=== PATIENT | male | born 1980 | race Caucasian/White ===

== ENCOUNTER 2016-06-15 14:11 | Inpatient (IN) | payer MEDICARE, MEDICAID ==
[2016-06-15] MEDS ORDERED: NORMAL SALINE 1,000 ML IV ONE ×4 (14:30→15:58)
--- NOTE | 2016-06-15 14:57 | ERNOTE ---
Medical Problem HPI - Narrative Date of Service: 06/15/16 - General Chief Complaint: Diabetes Related Problem Time Seen by Provider: 06/15/16 14:37 Source: patient, family Exam Limitations: no limitations - Immun/Allergies/Home Medications Immunizations: IMMUNIZATION HX Immunizations Up to Date No History of Influenza Vaccine No Hx Pneumococcal Vaccination No Allergies/Adverse Reactions: Allergies Penicillins Allergy (Intermediate, Verified 06/15/16 14:53) Hives codeine Allergy (Verified 06/15/16 14:53) Hives Pt notes no allergy clarithromycin Adverse Reaction (Verified 06/15/16 14:53) Pt notes no allergy metoclopramide Adverse Reaction (Verified 06/15/16 14:53) Pt notes no allergy Home Medications: HOME MEDICATIONS ALPRAZolam [Xanax] 1 mg PO TID PRN 06/15/16 [Last Taken Unknown] HYDROcodone/ACETAMINOPHEN [[place] 10-325 Tablet] 1 each PO Q4H PRN 06/15/16 [ Last Taken Unknown] Insulin Glargine,Hum.rec.anlog [Lantus] 30 units SC BID 06/15/16 [Last Taken Unknown] Insulin Lispro [Humalog] 0 - 12 units SC ACHS 06/15/16 [Last Taken Unknown] Venlafaxine HCl [Effexor] 150 mg PO BID 06/15/16 [Last Taken Unknown] - History of Present History Narrative: Patient comes due to vomiting, chest pain, abdominal pain, and elevated sugar level. Patient has not been able to drink fluids and has not been using his recommended medications for his DM. Timing: constant Severity: severe Modifying Factors - (Improves): Present: other - nothing Modifying Factors - (Worsens): Present: other - Failing to use his medications for DM Review of Systems - Review of Systems Constitutional: Present: weakness, malaise. Absent: fever, chills EYE: Present: no symptoms reported ENT: Present: no symptoms reported Respiratory: Present: cough Cardiology: Present: chest pain. Absent: palpitations, syncope, edema, claudication Gastrointestinal/Abdominal: Present: nausea, vomiting, abdominal pain - epigastric. Absent: diarrhea Genitourinary: Absent: dysuria, hematuria, discharge Musculoskeletal: Present: muscle pain Skin: Absent: rash, lesions Neurological: Present: anxiety, depressed, weakness Endocrine: Present: intolerance to heat, intolerance to cold, unexplained weight loss Hematologic/Lymphatic: Absent: easy bruising, easy bleeding, swollen glands Psych: Present: anxiety, depressed, emotional problems All Other Systems: All systems neg except as marked - Patient's Past Medical History Patient History - Medical: Anxiety, Bipolar, Diabetes Type 1, Depression Patient History - Cardiac/Respiratory: No pertinent hx Patient History - Cancer: No Hx of Cancer Patient History - Surgical Procedures: Amputation Patient History - Other: None - Family History Mother Family History - Medical: Diabetes Type 2 Insulin Dependent - Social History Living Situations: home Abuse History: No History of abuse Psych History: Hx of Anxiety, Hx of Depression Smoking Status: Current every day smoker Have you smoked in the past 12 months: Yes Alcohol Use: none Drug Use: marijuana - Immunizations Immunizations Up to Date: No Hx Pneumococcal Vaccination: No History of Influenza Vaccine: No Physical Exam - Physical Exam General Appearance: Present: moderate distress - in pain, anxious, other - wasted and cachetic Eye Exam: Normal inspection: bilateral, PERRL: bilateral, EOMI: bilateral Ears, Nose, Throat: Present: normal pharynx, dry mucous membranes. Absent: nasal congestion, sinus pain/drainage, pharyngeal erythema, pharyngeal swelling , tonsillar exudate Neck: Present: normal inspection, nontender Respiratory: Present: no respiratory distress, normal breath sounds, no accessory muscle use, chest nontender, lungs clear Cardiovascular/Chest: Present: no murmur, normal peripheral pulses, tachycardia. Absent: JVD Gastrointestinal/Abdominal: Present: normal bowel sounds, nontender, nondistended, soft, no organomegaly Back Exam: Present: normal inspection, normal range of motion, no CVA tenderness , no vertebral tenderness Extremity Exam: Present: normal inspection, non-tender, normal range of motion, no edema Neurological Exam: Present: alert, oriented, normal mood/affect, no motor/ sensory deficits Skin Exam: Present: normal color, warm/dry. Absent: diaphoresis, cyanosis, jaundice, skin rash Lymphatic Exam: Present: no adenopathy ED Progress - Date and Time Seen: Date and Time: 06/15/16 14:54 Procedure Note: Patient was placed an external jugular peripheral access by me. The area was clean with iodine and a 20G was placed. Venous return was noticed and good flow. Patient had no complications and had and EBL: 0. 06/15/16 16:21 Patient at the moment is feeling better. Patient was found with a low pH, positive ketones and dehydration. Patient will be treated for DKA. Patient at the moment with no ST Elevations and negative Trop. Call to Hospitalist was placed and Insulin Drip was started. 06/15/16 16:24 Hospitalist has been paged. 06/15/16 16:59 Case has been accepted by Hospitalist - Results and Orders Patient's Lab Results:: I have reviewed the patient's lab results. Results and Orders: CBC: WNL CMP: Elevated glucose, low CO2, +ketones ABGs: low pH APAP, Alcohol, and Salicylate Level: negative - Vital Signs Patient's Vital Signs:: I have reviewed the patient's vital signs. Vital Signs: Vital Signs 06/15/16 06/15/16 14:13 14:38 Temperature 36.1 C L 36.1 C L Pulse Rate 110 H 106 H Respiratory 33 H 22 H Rate Blood Pressure 112/60 107/68 O2 Sat by Pulse 99 100 Oximetry - EKG EKG read: Interp. by me EKG Comments: HR: 107, No ST Elevation, S. Tachy - X-Ray X-Ray #1 X-Ray: chest - No change from previous. No infiltrates Interpretation: Reviewed by me - Progress/Reassessment Chief Complaint: Diabetes Related Problem Progress:: Improved - Transfer of Care Expected Disposition: Admit Plan - Plan Plan: Patient found with severe dehydration and elevated glucose with the Hx on non compliance. Patient will be given hydration. Tx for chest pain will be given. Admit to ICU. Departure - Departure Clinical Impression: Dehydration Chest pain Qualifiers: Chest pain type: unspecified Qualified Code(s): R07.9 - Chest pain, unspecified
[2016-06-15] MEDS ORDERED: ONDANSETRON HCL/PF 2 MG/ML VIAL IV ONE (14:59)
[2016-06-15] MEDS ORDERED: FAMOTIDINE 10 MG/ML VIAL IV ONE ×2 (14:59)
[2016-06-15] MEDS ORDERED: ONDANSETRON HCL/PF 2 MG/ML VIAL ONE (14:59)
[2016-06-15 15:07] LABS: Hematocrit 40.4 % (42.0-52.0); Hemoglobin 13.5 gm/dL (13.5-18.0); Mean Corpuscular Hemoglobin 31.4 pg (27-31); Mean Corpuscular Hgb Conc 33.4 g/dl (32-36); Mean Platelet Volume 10.5 fl (6.0-9.5); Neutrophil # 6.2 K/mm3 (1.3-6.0); Platelet Count 332 K/mm3 (150-450); Red Cell Distribution Width 12.6 % (11.5-14.0); White Blood Count 9.5 K/mm3 (4.0-10.5)
[2016-06-15 15:41] LABS: ALT 12 U/L (19-67); AST 8 U/L (0-48); Albumin * 4.6 gm/dl (3.4-5.0); Alkaline Phosphatase * 107 U/L (50-170); Anion Gap 34.1 mmol/L (6.8-13.8); BUN/Creatinine Ratio 10.1 (9.0-21.6); Bilirubin, Total 0.8 mg/dL (0.0-1.1); Blood Urea Nitrogen 15 mg/dL (6-23); Ca. Corrected For Albumin 9.4 mg/dL (8.4-10.2); Calcium * 10.2 mg/dL (7.9-10.9); Carbon Dioxide 10.3 mmol/L (24-32.6); Chloride 95 mmol/L (97-106); Potassium 4.4 mmol/L (3.4-4.6); Salicylate 6.1 mg/dL (2.8-20.0); Sodium 135 mmol/L (132-142); Total Protein 7.7 gm/dL (6.2-8.2)
[2016-06-15 15:42] LABS: Troponin I Less than 0.017 ng/ml (0.00-0.10)
--- OUTSIDE RECORDS SUMMARY | 2016-06-15 15:49 | XMS REPORT | Continuity of Care Document ---
:1980 Author Organization [facility] ([facility]) Address [address] [place] [address] Phone [phone] Care Team Providers Name Role Phone Mitchell Peres Primary Care Provider [phone] Source Comments This disclosure is being made pursuant to the Care Everywhere program, applicable federal and state laws, and may not contain all informaitonavailable regarding this patient.[facility] ([facility]) Active Allergies and Adverse Reactions Allergen Noted Date Severity Reactions Comments Codeine 12/07/2015 Urticaria (Hives) Penicillins Urticaria (Hives) Current Medications Prescription Sig. Disp. Refills Start Date End Date Status blood glucose 1 Kit 4 times daily. 1 Each 0 05/16/2011 Active meter (BLOOD Indications: Diabetes GLUCOSE METER) Kit Mellitus Lancets (FREESTYLE 1 Each 4 times daily. 120 Each 1 05/16/2011 Active LANCETS) [facility] [place] Indications: Type 1 Diabetes Mellitus glucose blood test 1 Strip 4 times 120 Package 1 05/16/2011 Active strips (FREESTYLE daily. Indications: TEST) Type 1 Diabetes Mellitus Insulin [place], Use as directed with 100 Each 6 07/14/2011 Active Disposable, (PEN insulin pens.Dispense NEEDLES) 31 X 1/4 UltiCare or SM " Ndle Clickfine Pen [place] Indications: Diabetes Mellitus fenofibrate Take 1 Tab by mouth 90 Tab 3 07/15/2011 Active (TRICOR) 145 mg daily. pMAP tablet Indications: Hyperlipidemia SUPPLY by In Vitro route 50 Strip 11 06/28/2012 Active KETO-DIASTIX test daily. Indications: strips TYPE 1 DIABETES MELLITUS ALPRAZolam 1 mg Take 1 mg by mouth 3 Active tablet times daily . calcitriol 0.5 mcg Take 2 capsules (1 60 capsule 11 04/19/2015 Active capsule mcg total) by mouth daily. folic acid 1 mg Take 1 tablet (1 mg 30 tablet 04/19/2015 Active tablet total) by mouth daily. thiamine (VITAMIN Take 2 tablets (100 60 tablet 11 04/19/2015 Active B-1) 50 mg tablet mg total) by mouth daily. HYDROcodone-acetam Take 1 tablet by Active inophen 10-325 mg mouth every 4 hours per tablet as needed. LANTUS SOLOSTAR Inject 9 Units 15 mL 11 07/07/2015 Active 100 unit/mL (3 mL) subcutaneously 2 injection pen times daily. polyethylene Mix 17 gm (line 527 g 1 07/07/2015 Active glycol 3350 inside of cap) with (MIRALAX) 17 fluids and take by gram/dose powder mouth daily for constipation. glucagon (GLUCAGON Inject 1 Kit 11 07/07/2015 Active EMERGENCY KIT intramuscularly once (HUMAN)) 1 mg as needed. injection traMADol 50 mg Take 50 mg by mouth Active tablet every 4 hours as needed. potassium chloride Take 10 mEq by mouth Active 10 mEq XR tablet 2 times daily. venlafaxine 150 mg Take 150 mg by mouth Active XR capsule 2 times daily. pregabalin Take 1 capsule (75 mg 28 capsule 0 12/10/2015 Active (LYRICA) 75 mg total) by mouth 2 capsule times daily. insulin aspart Inject 8 units 15 mL 11 12/10/2015 Active (NovoLOG Flexpen) subcutaneously 3 100 unit/mL (3 mL) times daily with injection pen meals plus 1-5 Units 3 times daily before meals based on sliding scale. Hold if meal skip. Active Problems Problem Noted Date Metabolic encephalopathy 12/08/2015 Hypophosphatemia 12/08/2015 Hypokalemia 12/08/2015 Hypernatremia 12/08/2015 High anion gap metabolic acidosis 12/08/2015 Lactic acidosis 12/08/2015 Acute respiratory failure 12/07/2015 Diabetic ketoacidosis without coma associated with type 1 diabetes 12/07/2015 mellitus Subcutaneous emphysema 07/07/2015 Overview: monitor Pneumothorax, iatrogenic 07/04/2015 Last Assessment & Plan: Chest tube in place. Monitor. Removed on 07/06. Left hip pain 05/19/2015 Delirium 04/15/2015 Closed left hip fracture 04/11/2015 Postprocedural hypotension 04/11/2015 Closed fracture of left hip 04/10/2015 Tachycardia, unspecified 06/26/2012 Foot callus 01/30/2012 ALEKSANDRA (acute kidney injury) 12/12/2011 Anemia 12/12/2011 Last Assessment & Plan: Monitor. 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/2008 Overview: Band saw accident Uncontrolled type 1 diabetes mellitus Overview: Endocrinology consult GERD (gastroesophageal reflux disease) Overview: PPI ordered Mixed hyperlipidemia Anxiety Last Assessment & Plan: Restart home medications Resolved Problems Problem Noted Date Resolved Date ALEKSANDRA (acute kidney injury) 06/27/2012 06/28/2012 Leukocytosis, unspecified 06/27/2012 06/28/2012 Hypovolemic shock 06/27/2012 06/28/2012 DKA (diabetic ketoacidoses) 12/11/2011 06/28/2012 Other abnormal blood chemistry 06/11/2008 05/09/2011 Pain in joint, hand 10/25/2007 05/09/2011 Type II or unspecified type diabetes mellitus with 08/27/2007 05/09/2011 ketoacidosis, uncontrolled Immunizations Name Dates Previously Given Next Due Influenza, PF 12/13/2011 Influenza, unspecified 12/09/2010 Pneumococcal, unspecified 12/09/2010 Tdap 07/14/2011 Social History Tobacco Use Types Packs/Day Years Used Date Current Every Day Smoker 0.5 20 Smokeless Tobacco: Former User Tobacco Cessation:Ready to Quit: No; Counseling Given: Yes Comments:Started smoking at age 11 Alcohol Use Drinks/Week oz/Week Comments No 0.0 stopped in Feb 2011 Last Filed Vital Signs Vital Sign Reading Time Taken Blood Pressure 103/75 12/10/2015 1:00 PM CDT Pulse 134 12/07/2015 2:35 AM CDT Temperature 36.2 C (97.2 F) 12/10/2015 1:00 PM CDT Respiratory Rate 22 12/07/2015 2:35 AM CDT Height 1.8 m (5' 10.87") 12/09/2015 12:16 PM CDT Weight 58.1 kg (128 lb 1.4 oz) 12/07/2015 2:45 AM CDT Body Mass Index 17.93 12/07/2015 2:45 AM CDT Oxygen Saturation 96% 12/10/2015 1:00 PM CDT Plan of Care Patient Goal Type Goal Result Component % HBA1C below 7.0 Health Maintenance Due Date Last Done Comments Hepatitis B Vaccine (1 of 3 - 1980 Primary Series) MMR Vaccine 11/27/1997 Varicella Vaccine (1 of 2 - 11/27/1997 Adult - No Evidence of Immunity) Pneumococcal Vaccine (1 of 1 11/27/1998 - PPSV23) DIABETIC: Foot Exam 07/13/2012 07/14/2011, 07/14/2011 DIABETIC: Retinal Eye Exam 09/11/2012 09/12/2011, 09/12/2011 DIABETIC: Cholesterol 10/26/2012 10/27/2011, 05/09/2011 Diabetic: Hdl 10/26/2012 10/27/2011, 05/09/2011 Diabetic: Ldl 10/26/2012 10/27/2011, 05/10/2011, 05/09/2011 DIABETIC: Microalbumin 10/26/2012 10/27/2011 DIABETIC: Triglycerides 10/26/2012 10/27/2011, 05/09/2011 Influenza Vaccine: Seasonal 09/28/2015 12/13/2011, (#1) 12/09/2010 DIABETIC: Hemoglobin A1C 01/06/2016 07/06/2015, Additional history exists 04/10/2015, 06/26/2012 Td Vaccine 07/13/2021 07/14/2011 Tdap Vaccine Completed 07/14/2011 Results from Last 3 Months Not on file
--- OUTSIDE RECORDS SUMMARY | 2016-06-15 15:49 | XMS REPORT | Continuity of Care Document ---
:1980 Author Organization [facility] [place] [address] Care Team Providers Name Role Phone Unavailable Primary Care Provider Unavailable Source Comments This disclosure is being made pursuant to the [employer] program and maynot contain all information available regarding this patient.[facility] Active Allergies and Adverse Reactions Not on File Current Medications Be aware that medications may not be up to date as of this document. Alwaysverify current medications with the patient. Not on file Active Problems Not on file Social History Tobacco Use Types Packs/Day Years Used Date Never Assessed Plan of Care Health Maintenance Due Date Last Done Comments Tetanus/Pertussis (1 - Tdap) 11/27/1998 Influenza Immunization (#1) 2015 Results from Last 3 Months Not on file
[2016-06-15] MEDS ORDERED: INSULIN REGULAR, HUMAN 100 UNITS/ML VIAL IV ONE (16:17)
[2016-06-15 16:20] LABS: Glucose * 689 mg/dL (70-110)
--- OUTSIDE RECORDS SUMMARY | 2016-06-15 16:45 | XMS REPORT | Continuity of Care Document ---
:1980 Author Organization [facility] ([facility]) Address [address] [place] [address] Phone [phone] Care Team Providers Name Role Phone Mitchell Peres Primary Care Provider [phone] Source Comments This disclosure is being made pursuant to the Care Everywhere program, applicable federal and state laws, and may not contain all informaitonavailable regarding this patient.[facility] ([facility]) Active Allergies and Adverse Reactions Allergen Noted Date Severity Reactions Comments Codeine 12/07/2015 Urticaria (Hives) Penicillins Urticaria (Hives) Current Medications Prescription Sig. Disp. Refills Start Date End Date Status blood glucose 1 Kit 4 times daily. 1 Each 0 05/16/2011 Active meter (BLOOD Indications: Diabetes GLUCOSE METER) Kit Mellitus Lancets (FREESTYLE 1 Each 4 times daily. 120 Each 1 05/16/2011 Active LANCETS) [facility] [place] Indications: Type 1 Diabetes Mellitus glucose blood test 1 Strip 4 times 120 Package 1 05/16/2011 Active strips (FREESTYLE daily. Indications: TEST) Type 1 Diabetes Mellitus Insulin [place], Use as directed with 100 Each 6 07/14/2011 Active Disposable, (PEN insulin pens.Dispense NEEDLES) 31 X 1/4 UltiCare or SM " Ndle Clickfine Pen [place] Indications: Diabetes Mellitus fenofibrate Take 1 Tab [...]
--- OUTSIDE RECORDS SUMMARY | 2016-06-15 16:45 | XMS REPORT | Continuity of Care Document ---
:1980 Author Organization [facility] [facility] [place] [address] Care Team Providers Name Role Phone Unavailable Primary Care Provider Unavailable Source Comments This disclosure is being made pursuant to the [employer] program and maynot contain all information available regarding this patient.[employer] [facility] Active Allergies and Adverse Reactions Not on [...]
[2016-06-15] MEDS: INSULIN REGULAR HUMAN REC 100 UNITS in NORMAL SALINE 100 ML IV PRN ×3 (16:53→20:40)
[2016-06-15 16:58] LABS: Urine Bilirubin Negative (NEGATIVE); Urine Ketone Large mg/dL (NEGATIVE); Urine Nitrite Negative (NEGATIVE); Urine Protein Negative (NEGATIVE); Urine Urobilinogen Normal (NORMAL)
[2016-06-15] MEDS ORDERED: POTASSIUM CHLORIDE 20 MEQ in 0.5 NORMAL SALINE 1,000 ML IV ONE (17:00)
[2016-06-15 17:07] LABS: Urine Appearance Clear; Urine Blood 10 /ul (NEGATIVE); Urine Color Yellow
[2016-06-15 17:08] LABS: Urine Bacteria TRACE; Urine RBC None Seen /hpf (0-5); Urine WBC None Seen /hpf (0-5)
[2016-06-15 17:10] LABS: Cocaine Ur Negative (NEGATIVE); Urine Barbiturate Negative (NEGATIVE); Urine Benzodiazepines Negative (NEGATIVE); Urine Opiates Negative (NEGATIVE); Urine PCP Negative (NEGATIVE); Urine THC Positive (NEGATIVE)
[2016-06-15] MEDS ORDERED: ASPIRIN 81 MG TAB.CHEW ONE (17:25)
[2016-06-15] MEDS: ASPIRIN 81 MG TAB.CHEW PO SCH (17:27)
[2016-06-15 19:21] LABS: Anion Gap 28.6 mmol/L (6.8-13.8); BUN/Creatinine Ratio 12.6 (9.0-21.6); Calcium * 8.2 mg/dL (7.9-10.9); Carbon Dioxide 9.1 mmol/L (24-32.6); Magnesium 1.9 mg/dL (1.2-2.8); Phosphorus 3.6 mg/dL (2.2-4.2); Potassium 5.7 mmol/L (3.4-4.6)
[2016-06-15] MEDS: NORMAL SALINE 1,000 ML IV PRN (19:43)
[2016-06-15] MEDS ORDERED: ONDANSETRON HCL/PF 2 MG/ML VIAL IV PRN (20:50)
[2016-06-15] MEDS ORDERED: ALPRAZolam 1 MG TABLET PO PRN (20:56)
--- NOTE | 2016-06-15 20:59 | HP ---
Chief Complaint - Chief Complaint Date of Service: 06/15/16 Time of Service: 20:57 Chief Complaint: " Nausea, vomiting". Source of HPI-Pt; unreliable, ER provider report, Pt's mother Sarah Beth. History of Present Illness: Mr. Castillo is a 35-yr-old WM pt of Dr. Mitchell Peres with a PMH of: Anxiety( generalized), Depression, DM I, Myalgia, Insomnia, Pneumothorax & PTSD. History is unobtainable from the pt as he is in a lethargic state of consciousness, and therefore pt's mother Sarah Beth provided most of the information. Sarah Beth states that pt has battled with depression for many years which causes him to be non compliant with his medication regimen, more so his Diabetes management. He will go through depression moments and he will stay in his room without eating , checking his blood sugars or taking any insulin. Yesterday, he refused to eat as he was not feeling well and appeared to be in "a low mood." This morning, he started vomiting and family had a difficult time convincing him to come to the hospital. He vomited almost 5 times before coming to the ED. Mother reports that he hardly checks his blood sugars. He denies having any fevers, chills, diarrhea or Abd. Pain. During evaluation at the ED, his serum blood glucose was found to be 689mg/dL, was positive for serum ketones and the ABGs analysis showed Anion Gap Metabolic Acidosis with Respiratory Alkalosis. Pt will need to be admitted inpatient for a minimum of 2 midnights or more to ensure that the DKA resolves. - Patient's Past Medical History Patient History - Medical: Anxiety, Bipolar, Diabetes Type 1, Depression Patient History - Cardiac/Respiratory: No pertinent hx Patient History - Cancer: No Hx of Cancer Patient History - Surgical Procedures: Amputation Patient History - Other: None - Family History Mother Family History - Medical: Diabetes Type 2 Insulin Dependent Maternal Grandfather Family History - Cancer: Esophageal Maternal Grandmother Family History - Cancer: Lymphoma Father Family History - Medical: No pertinent hx - Social History Living Situations: home Abuse History: No History of abuse Psych History: Hx of Anxiety, Hx of Depression Smoking Status: Current every day smoker Have you smoked in the past 12 months: Yes Alcohol Use: none Drug Use: marijuana - Immunizations Immunizations Up to Date: No Hx Pneumococcal Vaccination: No History of Influenza Vaccine: No Review Of Systems (GEN) - Review of Systems Additional Comments: ROS unobtainable due to pt being in lethargic state. Immunizations: IMMUNIZATION HX Immunizations Up to Date No History of Influenza Vaccine No Hx Pneumococcal Vaccination No Allergies/Adverse Reactions: Allergies Allergy/AdvReac Type Severity Reaction Status Date / Time Penicillins Allergy Intermediate Hives Verified 06/15/16 14:53 Home Medications: HOME MEDICATIONS ALPRAZolam [Xanax] 1 mg PO TID PRN 06/15/16 [Last Taken Unknown] Aspirin [Aspirin EC] 325 mg PO DAILY 06/15/16 [Last Taken Unknown] Calcitriol 0.25 mcg PO DAILY 06/15/16 [Last Taken Unknown] Docusate Sodium [Colace] 100 mg PO BID 06/15/16 [Last Taken Unknown] Fenofibrate 134 mg PO DAILY 06/15/16 [Last Taken Unknown] Ferrous Sulfate 325 mg PO TID 06/15/16 [Last Taken Unknown] HYDROcodone/ACETAMINOPHEN [[place] 10-325 Tablet] 1 each PO Q4H PRN 06/15/16 [ Last Taken Unknown] Insulin Glargine,Hum.rec.anlog [Lantus] 30 units SC BID 06/15/16 [Last Taken Unknown] Insulin Lispro [Humalog] 0 - 12 units SC ACHS 06/15/16 [Last Taken Unknown] Mirtazapine [Remeron] 30 mg PO HS 06/15/16 [Last Taken Unknown] Multivitamin [One Daily Multivitamin] 1 each PO DAILY 06/15/16 [Last Taken Unknown] Polyethylene Glycol 3350 [Miralax] 17 g PO DAILY 06/15/16 [Last Taken Unknown] Potassium Chloride [Klor-Con M10] 10 meq PO BIDWM 06/15/16 [Last Taken Unknown] Pregabalin [Lyrica] 75 mg PO BID 06/15/16 [Last Taken Unknown] Simvastatin [Zocor] 20 mg PO HS 06/15/16 [Last Taken Unknown] Venlafaxine HCl [Effexor] 150 mg PO BIDWM 06/15/16 [Last Taken Unknown] metFORMIN HCL [Glucophage] 1,000 mg PO BIDWM 06/15/16 [Last Taken Unknown] oxyCODONE HCL [Oxycodone] 5 mg PO Q6H PRN 06/15/16 [Last Taken Unknown] traMADol HCL [Ultram] 50 mg PO Q4H PRN 06/15/16 [Last Taken Unknown] Exam - Exam Vital Signs: Vital Signs - Last Taken Temp 37.6 C H 06/15/16 18:14 Pulse 104 H 06/15/16 19:40 Resp 18 06/15/16 19:40 BP 107/57 06/15/16 19:40 Pulse Ox 100 06/15/16 19:40 Constitutional: Present: Lethargic, Thin and frail, Looks Older than stated age ENT Exam: Present: normal ENT inspection, dry mucous membranes. Absent: nasal drainage, pharyngeal erythema Eye Exam: bilateral eye: normal inspection, PERRL Neck: Present: full range of motion, supple, normal inspection Back Exam: Present: normal inspection, no CVA tenderness Breasts: Present: Exam deferred Respiratory: Present: lungs clear, no accessory muscle use Cardiovascular/Chest: Present: normal peripheral pulses, regular rate, rhythm, no chest tenderness, no murmur Abdomen: Present: Normal bowel sounds, soft, nontender /Rectal: Present: Exam deferred Extremity: Present: normal range of motion, non-tender, normal inspection, no pedal edema Skin Exam: Present: warm/dry, no cyanosis Lymphatic: Present: no adenopathy Neurologic: Present: depressed affect, dizzy/light-headedness Appearance: Present: disheveled, impaired insight Eye contact: Present: avoids eye contact, decreased rate of speech Thoughts: Present: no apparent hallucination Diagnostic Studies: Abnormal Lab Results 06/15/16 Range/Units 19:00 Potassium 5.7 H D (3.4-4.6) mmol/L Carbon Dioxide 9.1 L (24-32.6) mmol/L Anion Gap 28.6 H (6.8-13.8) mmol/L Random Glucose 398 H D (70-110) mg/dL Laboratory Results WBC 9.5 K/mm3 (4.0-10.5) 06/15/16 15:06 RBC 4.30 M/mm3 (4.7-6.0) L 06/15/16 15:06 Hgb 13.5 gm/dL (13.5-18.0) 06/15/16 15:06 Hct 40.4 % (42.0-52.0) L 06/15/16 15:06 MCV 94.0 fl (78-100) 06/15/16 15:06 MCH 31.4 pg (27-31) H 06/15/16 15:06 MCHC 33.4 g/dl (32-36) 06/15/16 15:06 RDW 12.6 % (11.5-14.0) 06/15/16 15:06 Plt Count 332 K/mm3 (150-450) 06/15/16 15:06 MPV 10.5 fl (6.0-9.5) H 06/15/16 15:06 Immature Gran % (Auto) 0.20 % (0.001-0.429) 06/15/16 15:06 Immature Gran # (Auto) 0.02 K/mm3 (0.000-0.0310) 06/15/16 15:06 Neutrophils % 65.0 % (42-75.0) 06/15/16 15:06 Lymphocytes % 28.2 % (20-51) 06/15/16 15:06 Monocytes % 5.6 % (0.0-9) 06/15/16 15:06 Eosinophils % 0.2 % (0.0-3.0) 06/15/16 15:06 Basophils % 0.8 % (0.0-1.0) 06/15/16 15:06 Nucleated RBC % 0.0 k/mm3 (0-1) 06/15/16 15:06 Neutrophils # 6.2 K/mm3 (1.3-6.0) H 06/15/16 15:06 Lymphocytes # 2.7 k/mm3 (1.5-3.5) 06/15/16 15:06 Monocytes # 0.5 k/mm3 (0.0-1.0) 06/15/16 15:06 Eosinophils # 0.0 k/mm3 (0.0-0.7) 06/15/16 15:06 Absolute Basophils 0.1 k/mm3 (0.0-0.1) 06/15/16 15:06 pCO2 Less than 14.9 mmHg (35.0-48.0) L* 06/15/16 15:10 pO2 195.9 mmHg (83.0-108.0) H 06/15/16 15:10 HCO3 6.3 mmol/L (21.0-28.0) L 06/15/16 15:10 Total CO2 6.7 mmol/L (19.0-24.0) L 06/15/16 15:10 Base Excess -18.0 mmol/L (-2.0-3.0) L 06/15/16 15:10 ABG pH 7.28 (7.35-7.45) L 06/15/16 15:10 ABG O2 Sat (Measured) 99.2 % (94.0-98.0) H 06/15/16 15:10 Sodium 136 mmol/L (132-142) 06/15/16 19:00 Plasma Sodium 141 mmol/L (130-142) 06/15/16 19:00 Potassium 5.7 mmol/L (3.4-4.6) H D 06/15/16 19:00 Chloride 104 mmol/L (97-106) 06/15/16 19:00 Carbon Dioxide 9.1 mmol/L (24-32.6) L 06/15/16 19:00 Anion Gap 28.6 mmol/L (6.8-13.8) H 06/15/16 19:00 BUN 12 mg/dL (6-23) 06/15/16 19:00 Creatinine 0.95 mg/dL (0.4-1.4) 06/15/16 19:00 Est GFR (Non-Af Amer) 95 mL/min (60-130) D 06/15/16 19:00 BUN/Creatinine Ratio 12.6 (9.0-21.6) 06/15/16 19:00 Random Glucose 398 mg/dL (70-110) H D 06/15/16 19:00 Calcium 8.2 mg/dL (7.9-10.9) 06/15/16 19:00 Calcium Adj for Albumin 9.4 mg/dL (8.4-10.2) 06/15/16 15:06 Phosphorus 3.6 mg/dL (2.2-4.2) 06/15/16 19:00 Magnesium 1.9 mg/dL (1.2-2.8) 06/15/16 19:00 Total Bilirubin 0.8 mg/dL (0.0-1.1) 06/15/16 15:06 AST 8 U/L (0-48) 06/15/16 15:06 ALT 12 U/L (19-67) L 06/15/16 15:06 Alkaline Phosphatase 107 U/L (50-170) 06/15/16 15:06 Troponin I Less than 0.017 ng/ml (0.00-0.10) 06/15/16 15:06 Total Protein 7.7 gm/dL (6.2-8.2) 06/15/16 15:06 Albumin 4.6 gm/dl (3.4-5.0) 06/15/16 15:06 TSH 1.420 uIU/mL (0.358-3.74) 06/15/16 15:06 Urine Color Yellow 06/15/16 16:28 Urine Appearance Clear 06/15/16 16:28 Urine pH 6.0 pH (5.0-7.0) 06/15/16 16:28 Ur Specific [place] 1.010 SP.GR. (1.005-1.030) 06/15/16 16:28 Urine Protein Negative mg/dL (NEGATIVE) 06/15/16 16:28 Urine Glucose (UA) >=1000 mg/dL (NEGATIVE) H 06/15/16 16:28 Urine Ketones Large mg/dL (NEGATIVE) 06/15/16 16:28 Urine Blood 10 /ul (NEGATIVE) H 06/15/16 16:28 Urine Nitrate Negative (NEGATIVE) 06/15/16 16:28 Urine Bilirubin Negative mg/dl (NEGATIVE) 06/15/16 16:28 Urine Urobilinogen Normal EU/dl (NORMAL) 06/15/16 16:28 Ur Leukocyte Esterase Negative /ul (NEGATIVE) 06/15/16 16:28 Urine RBC None seen /hpf (0-5) 06/15/16 16:28 Urine WBC None seen /hpf (0-5) 06/15/16 16:28 Ur Epithelial Cells Trace /hpf (0-5) 06/15/16 16:28 Urine Bacteria Trace (NONE) 06/15/16 16:28 Urine Culture Comments No culture indicated 06/15/16 16:28 Salicylates 6.1 mg/dL (2.8-20.0) 06/15/16 15:06 Urine Opiates Screen Negative (NEGATIVE) 04/19/17 16:28 Acetaminophen Less than 0.2 mcg/mL (10.0-30.0) L 06/15/16 15:06 Barbiturate Screen Negative (NEGATIVE) 06/15/16 16:28 Ur Phencyclidine Scrn Negative (NEGATIVE) 06/15/16 16:28 Urine Amphetamine Negative (NEGATIVE) 06/15/16 16:28 U Benzodiazepines Scrn Negative (NEGATIVE) 06/15/16 16:28 Urine Cocaine Screen Negative (NEGATIVE) 06/15/16 16:28 Urine Marijuana (THC) Positive (NEGATIVE) H 06/15/16 16:28 Ethyl Alcohol Less than 3.0 mg/dL (0.0-10.0) 06/15/16 15:06 Serum Ketones Positive - 80mg/dl (NEGATIVE) H 06/15/16 15:06 Assessment/Plan - Assessment/Plan (1) Metabolic acidosis, increased anion gap Assessment: No sign of infection on UA, nor on the CXR & WBC was in the normal range. No ethanol on toxicology screen. Therefore this was likely precipitated by the DKA. Problem: Acute (2) DKA (diabetic ketoacidoses) Assessment: Pt presented with N/V, hyperglycemia,was positive for serum ketones, ph of 7.3, serum bicarb of < 18. Received initial IVF hydration with nearly 4L of NS at the ED. NS with 20 kcl at 150 started at the ED but stopped due to K of 5.7. Insulin drip started at 0.1u/kg/hr. Will monitor serial BMP q 4 hours and adjust upcoming IVF based on the electrolytes. Will continue with NS@150ml/hr for now. IF blood sugar falls< 200 and K <4 mmm/L, will change IVF to [id number] K 20-30 meQ. Resolution will be noted with: Glucose < 200, AG of < 12 or bicarbonate > 15, and ph > 7.3, & when pt is able to eat. Will continue IV insulin for 1-2 hrs after initiating SQ insulin, the DC IV insulin to prevent rebound hyperglycemia. Problem: Acute Qualifiers: Diabetes mellitus type: type 1 Diabetes mellitus complication detail: without coma Qualified Code(s): E10.10 - Type 1 diabetes mellitus with ketoacidosis without coma (3) Depression Assessment: Psychosocial factors may be playing a role in his poor DM management and general compliance with medications. Will arrange for a follow-up with Psychiatry on Discharge or if possible,can arrange to be seen while inpatient. Problem: Chronic (4) Type I diabetes mellitus, uncontrolled Problem: Chronic
[2016-06-15] MEDS ORDERED: HYDROcodone/ACETAMINOPHEN 1 EACH TABLET PO PRN (21:36)
[2016-06-15] MEDS: PANTOPRAZOLE SODIUM 40 MG in NORMAL SALINE 100 ML IV SCH (22:11)
[2016-06-15] MEDS: VENLAFAXINE HCL 75 MG TABLET PO SCH (22:12)
[2016-06-15 23:01] LABS: Anion Gap 26.3 mmol/L (6.8-13.8); Carbon Dioxide 10.8 mmol/L (24-32.6); Estimated Creat Clear 112.1; Potassium 5.1 mmol/L (3.4-4.6)
[2016-06-16] MEDS: INSULIN REGULAR HUMAN REC 100 UNITS in NORMAL SALINE 100 ML IV PRN ×3 (00:39→03:29)
[2016-06-16] MEDS ORDERED: traMADol HCL 50 MG TABLET PO PRN (01:28)
[2016-06-16] MEDS: NORMAL SALINE 1,000 ML IV PRN (02:28)
[2016-06-16 03:11] LABS: Anion Gap 27.6 mmol/L (6.8-13.8); BUN/Creatinine Ratio 9.5 (9.0-21.6); Calcium * 8.2 mg/dL (7.9-10.9); Carbon Dioxide 8.4 mmol/L (24-32.6); Estimated Creat Clear 106.8
[2016-06-16 07:21] LABS: Hematocrit 32.8 % (42.0-52.0); Hemoglobin 11.3 gm/dL (13.5-18.0); Mean Cell Volume 92.4 fl (78-100); Mean Corpuscular Hemoglobin 31.8 pg (27-31); Mean Corpuscular Hgb Conc 34.5 g/dl (32-36); Neutrophil % 66.8 % (42-75.0); Platelet Count 265 K/mm3 (150-450); Red Blood Count 3.55 M/mm3 (4.7-6.0); Red Cell Distribution Width 12.8 % (11.5-14.0)
[2016-06-16 07:38] LABS: Albumin * 3.5 gm/dl (3.4-5.0); Anion Gap 20.6 mmol/L (6.8-13.8); BUN/Creatinine Ratio 9.9 (9.0-21.6); Bilirubin, Total 0.5 mg/dL (0.0-1.1); Ca. Corrected For Albumin 8.5 mg/dL (8.4-10.2); Calcium * 8.4 mg/dL (7.9-10.9); Carbon Dioxide 14.3 mmol/L (24-32.6); Phosphorus 2.1 mg/dL (2.2-4.2); Potassium 3.9 mmol/L (3.4-4.6); Total Protein 6.2 gm/dL (6.2-8.2)
[2016-06-16] MEDS ORDERED: POTASSIUM CHLORIDE 20 MEQ in NORMAL SALINE 1,000 ML IV SCH (08:00)
[2016-06-16] MEDS: VENLAFAXINE HCL 75 MG TABLET PO SCH (08:12)
[2016-06-16] MEDS: PANTOPRAZOLE SODIUM 40 MG in NORMAL SALINE 100 ML IV SCH (08:13)
[2016-06-16] MEDS ORDERED: INSULIN REGULAR HUMAN REC 100 UNITS in NORMAL SALINE 100 ML IV PRN (08:41)
[2016-06-16] MEDS ORDERED: POLYETHYLENE GLYCOL 3350 119 GM BTL PO SCH (09:00)
[2016-06-16] MEDS: POTASSIUM CHLORIDE 20 MEQ in DEXTROSE 5%-NORMAL SALINE 990 ML IV SCH ×3 (09:00→20:34)
[2016-06-16] MEDS ORDERED: PREGABALIN 75 MG CAPSULE PO SCH (09:00)
[2016-06-16] MEDS: ENOXAPARIN SODIUM 40 MG/0.4 ML SYRG SC SCH (10:59)
[2016-06-16] MEDS ORDERED: INSULIN LISPRO 100 UNITS/ML VIAL SC SCH (12:00)
--- NOTE | 2016-06-16 13:12 | CONS ---
[facility] - General Date of Service: 06/16/16 Narrative: Patient seen for psychiatry consult. Source: patient Exam Limitations: no limitations - History of Present Illness Initial Comments: Patient states that he has had issues with depression for many years. Stopped Venlafaxine and Mirtazapine months ago. Mood has steadily became more depressed. Timing/Duration: getting worse Severity: moderate Associated Symptoms: loss of appetite Allergies/Adverse Reactions: Allergies Penicillins Allergy (Intermediate, Verified 06/15/16 14:53) Hives Home Medications: Home Medications Medication Instructions Recorded Last Taken ALPRAZolam [Xanax] 1 mg PO TID PRN 06/15/16 Unknown Aspirin [Aspirin EC] 325 mg PO DAILY 06/15/16 Unknown Calcitriol 0.25 mcg PO DAILY 06/15/16 Unknown Docusate Sodium [Colace] 100 mg PO BID 06/15/16 Unknown Fenofibrate 134 mg PO DAILY 06/15/16 Unknown Ferrous Sulfate 325 mg PO TID 06/15/16 Unknown HYDROcodone/ACETAMINOPHEN [[place] 1 each PO Q4H PRN 06/15/16 Unknown 10-325 Tablet] Insulin Glargine,Hum.rec.anlog 30 units SC BID 06/15/16 Unknown [Lantus] Insulin Lispro [Humalog] 0 - 12 units SC ACHS 06/15/16 Unknown Mirtazapine [Remeron] 30 mg PO HS 06/15/16 Unknown Multivitamin [One Daily 1 each PO DAILY 06/15/16 Unknown Multivitamin] Polyethylene Glycol 3350 [Miralax] 17 g PO DAILY 06/15/16 Unknown Potassium Chloride [Klor-Con M10] 10 meq PO BIDWM 06/15/16 Unknown Pregabalin [Lyrica] 75 mg PO BID 06/15/16 Unknown Simvastatin [Zocor] 20 mg PO HS 06/15/16 Unknown Venlafaxine HCl [Effexor] 150 mg PO BIDWM 06/15/16 Unknown metFORMIN HCL [Glucophage] 1,000 mg PO BIDWM 06/15/16 Unknown oxyCODONE HCL [Oxycodone] 5 mg PO Q6H PRN 06/15/16 Unknown traMADol HCL [Ultram] 50 mg PO Q4H PRN 06/15/16 Unknown - Patient's Past Medical History Patient History - Medical: Anxiety, Bipolar, Diabetes Type 1, Depression Patient History - Cardiac/Respiratory: No pertinent hx Patient History - Cancer: No Hx of Cancer Patient History - Surgical Procedures: Amputation Patient History - Other: None - Family History Mother Family History - Medical: Diabetes Type 2 Insulin Dependent Father Family History - Medical: No pertinent hx Maternal Grandfather Family History - Cancer: Esophageal Maternal Grandmother Family History - Cancer: Lymphoma - Social History Living Situations: home Abuse History: No History of abuse Psych History: Hx of Anxiety, Hx of Depression Smoking Status: Current every day smoker Have you smoked in the past 12 months: Yes Do you dip or chew tobacco: No Patient requests Smoking Cessation Consult: No Initiate information on Smoking Cessation: No Alcohol Use: none Drug Use: marijuana - Immunizations Immunizations Up to Date: No Hx Pneumococcal Vaccination: No History of Influenza Vaccine: No Procedures ARTERIAL BLD GAS MEASURE (06/26/13) CLOSURE SKIN & SUBCUTANEOUS NEC (03/25/14) DRAINAGE OF R PLEURAL CAV WITH DRAIN DEV, PERC APPROACH (07/01/15) INSERT INDWELLING CATH (10/31/14) INSERT INFUSION DEV IN R EXT JUGULAR VEIN, PERC (07/01/15) INSERTION OF ENDOTRACHEAL AIRWAY INTO TRACHEA, VIA OPENING (12/06/15) INSERTION OF INFUSION DEV INTO R BRACH VEIN, PERC APPROACH (06/15/16) MEASURE OF ARTERIAL SATURATION, PERIPHERAL, PERC APPROACH (06/15/16) VENOUS CATHETERIZATION NEC (04/29/11) Medications - Medications Current Medications: Current Medications Aspirin (Aspirin Chewable) 81 mg PO DAILY ANGEL Stop: 07/16/16 16:35 Last Admin: 06/15/16 17:27 Dose: 81 mg Enoxaparin Sodium (Lovenox) 40 mg SC Q24H ANGEL Stop: 07/16/16 10:31 Last Admin: 06/16/16 10:59 Dose: 40 mg Pantoprazole Sodium 40 mg/ (Sodium Chloride) 100 mls @ 400 mls/hr IV Q12H ANGEL Stop: 07/15/16 21:01 Last Infusion: 06/16/16 08:28 Dose: Infused Insulin Human Regular 100 (units/ Sodium Chloride) 101 mls @ 6.75 mls/hr IV TITR PRN; Protocol; 0.1 UNITS/KG/HR PRN Reason: HYPERGLYCEMIA Stop: 07/16/16 08:42 Last Admin: 06/16/16 09:01 Dose: 0.1 units/kg/hr, 6.75 mls/hr Potassium Chloride 20 meq/ (Dextrose/Sodium Chloride) 1,000 mls @ 150 mls/hr IV .Q6H40M COUNT INCLUDES THE [facility] Stop: 07/16/16 08:46 Last Infusion: 06/16/16 10:11 Dose: 150 mls/hr Ondansetron HCl (Zofran) 4 mg IV Q4H PRN PRN Reason: Nausea Stop: 07/15/16 20:51 Last Admin: 06/16/16 11:42 Dose: 4 mg Venlafaxine HCl (Effexor) 150 mg PO BID COUNT INCLUDES THE [facility] Stop: 07/15/16 21:01 Last Admin: 06/16/16 08:12 Dose: 150 mg Review of Systems - Review of Systems Generalized/Overall Review: Present: Fatigue, Weight loss Neurological: Present: Depressed, Emotional Problems Physical Examination - Exam Narrative: Patient states that depression has been present for many years. Stopped antidepressant medications months ago because he felt they were not helping and were increasing irritability. Admits to mood swings, anger, irritability and racing thoughts. Has difficulty falling and staying asleep due to racing thoughts. States that appetite is poor. Has no energy or motivation. Has loss of interest in caring for self, not controlling diabetes, grooming appropriately or eating regularly. Admits to vague suicidal ideation, no specific plan or intent. Has been treated mainly with antidepressants in the past. Discussed depression vs. bipolar disorder. Discussed treatment options. Patient willing to try a SGA for bipolar disorder. He also agrees to follow up in outpatient psychiatry clinic. Will schedule appointment in the next few weeks. Discussed R/B/SE of medications. Patient voices understanding. Vital Signs: Vital Signs - Last Taken Temp 36.9 C 06/16/16 10:03 Pulse 88 06/16/16 12:02 Resp 14 06/16/16 12:02 BP 124/80 06/16/16 12:02 Pulse Ox 100 06/16/16 12:02 O2 Oxygen Delivery Method Room Air Constitutional: Present: Alert, Oriented x3, No distress, Thin and frail Appearance: Present: appropriate insight, no memory impairment Eye contact: Present: cooperative, good eye contact, normal speech Thoughts: Present: normal thought pattern - Patient states that he has ongoing depression. Admits to anger, irritability, mood swings, racing thoughts. Has difficulty falling and staying asleep due to racing thoughts. MDQ administered , screening is suggestive of bipolar disorder. - Results and Findings: Lab/Microbiology results last 24 hrs: Abnormal/Pending Laboratory Last 24 HRS 06/16/16 06/16/16 06/16/16 07:10 07:10 03:00 WBC 12.0 H D RBC 3.55 L Hgb 11.3 L Hct 32.8 L MCH 31.8 H MPV 10.0 H Immature Gran # (Auto) 0.04 H Neutrophils # 8.0 H Potassium 5.0 H Chloride 108 H Carbon Dioxide 14.3 L 8.4 L Anion Gap 20.6 H 27.6 H Random Glucose 147 H D 283 H Phosphorus 2.1 L D ALT 14 L 06/15/16 06/15/16 23:00 19:00 WBC RBC Hgb Hct MCH MPV Immature Gran # (Auto) Neutrophils # Potassium 5.1 H 5.7 H D Chloride Carbon Dioxide 10.8 L 9.1 L Anion Gap 26.3 H 28.6 H Random Glucose 309 H 398 H D Phosphorus ALT - Assessments/Findings (1) Bipolar 1 disorder, depressed, moderate Problem: Acute
[2016-06-16 13:36] LABS: Anion Gap 16.7 mmol/L (6.8-13.8); BUN/Creatinine Ratio 9.8 (9.0-21.6); Calcium * 8.5 mg/dL (7.9-10.9); Carbon Dioxide 18.3 mmol/L (24-32.6); Estimated Creat Clear 121.8
[2016-06-16] MEDS ORDERED: INSULIN GLARGINE,HUM.REC.ANLOG 100 UNITS/ML VIAL SC ONE (14:30)
--- NOTE | 2016-06-16 15:00 | PN ---
Subjective - Date and Time Seen Date: 06/16/16 Time: 14:38 Objective Objective Narrative: patient feels better. No further nausea/ abdominal pain/ SOB. He had felt suicicidal and stopped taking insulin and would like see psych during hospital stay. Does not feel well venlafaxine is working and takes it as needed. - Review of Systems Generalized/Overall Review: Denies: Weakness, Chills, Fever Respiratory: Denies: Cough, Shortness of Breath Cardiac: Denies: Chest Pain, Edema Abdominal: Reports: Nausea - Vitals Vitals: Last Vital Signs Temp 36.5 C 06/16/16 14:05 Pulse 87 06/16/16 14:05 Resp 12 06/16/16 14:05 BP 107/72 06/16/16 14:05 Pulse Ox 100 06/16/16 14:05 - Abnormal Lab Findings Abnormal Lab Findings: Laboratory Tests 06/16/16 06/16/16 07:10 13:20 Plasma Sodium 140 139 Potassium 3.9 D 4.0 Chloride 108 H 108 H Carbon Dioxide 14.3 L 18.3 L BUN 10 9 Creatinine 1.01 0.92 Est GFR (Non-Af Amer) 89 99 Random Glucose 147 H D 92 D Calcium Adj for Albumin 8.5 Phosphorus 2.1 L D Magnesium 2.0 Total Bilirubin 0.5 AST 12 ALT 14 L 06/16/16 07:10 WBC 12.0 H D Hgb 11.3 L Hct 32.8 L Plt Count 265 - Exam Constitutional: Present: Young, Thin and frail, Looks Older than stated age - The patient states he felt suicidal patient states he felt suicidal ENT Exam: Present: hearing grossly normal, moist mucous membranes - edentulous Respiratory: Present: lungs clear, normal breath sounds - Venlafaxine is working Cardiovascular/Chest: Present: regular rate, rhythm, no murmur Abdomen: Present: Normal bowel sounds, soft, nontender, nondistended Skin Exam: Present: normal color, warm/dry Neurologic: Present: alert, oriented x 3 Assessment/Plan Plan Narrative: 1. DKA : Due to noncompliance and stopping his medications. Continue insulin drip until acidosis is corrected. Check BMP every 6 hours. Normally takes lantus 30 units SQ BID. When CO2 or HCO3 is between 18-21 meq/ L , give lantus 15 units SQ X1 , start clear liquids , and D/C insulin drip after 2 hours after eating. 2. Depression and anxiety: Have Vashti Schaeffer see patient. 3. Non-compliance :
[2016-06-16] MEDS: ASPIRIN 81 MG TAB.CHEW PO SCH (16:47)
[2016-06-16] MEDS: INSULIN LISPRO 100 UNITS/ML VIAL SC SCH (17:27)
[2016-06-16 18:12] LABS: Anion Gap 16.4 mmol/L (6.8-13.8); BUN/Creatinine Ratio 9.2 (9.0-21.6); Calcium * 8.4 mg/dL (7.9-10.9); Estimated Creat Clear 128.8; Potassium 4.4 mmol/L (3.4-4.6)
[2016-06-16] MEDS ORDERED: SIMVASTATIN 20 MG TABLET PO SCH (21:00)
[2016-06-16] MEDS ORDERED: QUEtiapine FUMARATE 100 MG TABLET PO SCH (21:00)
[2016-06-16] MEDS: INSULIN GLARGINE,HUM.REC.ANLOG 100 UNITS/ML VIAL SC SCH (21:22)
[2016-06-17 05:34] LABS: Hematocrit 33.4 % (42.0-52.0); Hemoglobin 11.6 gm/dL (13.5-18.0); Mean Cell Volume 91.5 fl (78-100); Mean Corpuscular Hemoglobin 31.8 pg (27-31); Mean Corpuscular Hgb Conc 34.7 g/dl (32-36); Mean Platelet Volume 10.1 fl (6.0-9.5); Neutrophil # 2.2 K/mm3 (1.3-6.0); Neutrophil % 43.2 % (42-75.0); Platelet Count 242 K/mm3 (150-450); Red Blood Count 3.65 M/mm3 (4.7-6.0); Red Cell Distribution Width 12.7 % (11.5-14.0); White Blood Count 5.2 K/mm3 (4.0-10.5)
[2016-06-17 05:44] LABS: Anion Gap 14.2 mmol/L (6.8-13.8); BUN/Creatinine Ratio 8.8 (9.0-21.6); Calcium * 8.5 mg/dL (7.9-10.9); Carbon Dioxide 23.3 mmol/L (24-32.6); Estimated Creat Clear 140.1; Potassium 3.5 mmol/L (3.4-4.6)
[2016-06-17 06:56] VITALS: BP 101/55
[2016-06-17] MEDS: INSULIN LISPRO 100 UNITS/ML VIAL SC SCH ×2 (06:58→11:23)
[2016-06-17] MEDS: INSULIN GLARGINE,HUM.REC.ANLOG 100 UNITS/ML VIAL SC SCH (08:39)
[2016-06-17] MEDS: ASPIRIN 81 MG TAB.CHEW PO SCH (08:42)
[2016-06-17] MEDS ORDERED: INSULIN GLARGINE,HUM.REC.ANLOG 100 UNITS/ML VIAL SC SCH (09:35)
[2016-06-17] MEDS ORDERED: CHOLECALCIFEROL 1,000 UNIT CAPSULE PO SCH (09:45)
--- NOTE | 2016-06-17 10:19 | DS ---
<Boo Hunter - Last Filed: 06/17/16 10:57> Disposition: Home self-care Condition: Undetermined Problem Oriented Discharge Instructions to Patient/Family: Diabetes and Sick Day Management, Diabetic Ketoacidosis, Hyperglycemia, [id number] Additional Patient Instructions (free text): Follow up with Isacc Shaw on Monday, July 04 at 1. New Medication/ doses: Vitamin D3 2000 u PO daily [ cheaper if bought in a bottle of 100]. Seroquel 100 mg PO daily. Lantus has been decreased to 15 units SQ 2 times a day. Meds discontinued: Remeron, Effexor, calcitrol, finofibrate, Potassium Chloride Humalog Sliding Scale Insulin - with meals only Blood Sugar Insulin dose/instructions <60 no insulin - call MD 61-200 no insulin 201-250 3 units 251-300 4 units 301-350 6 units 351-400 9 units >400 12 units and call MD. Follow-up with your primary care physician in 2-3 weeks. Prescriptions (Any new or edited meds): QUEtiapine FUMARATE [Seroquel] 100 mg PO HS #30 tablet Complete Home Medications List: Complete Home Medication List: ALPRAZolam [Xanax] 1 mg PO TID PRN 06/15/16 Docusate Sodium [Colace] 100 mg PO BID 06/15/16 Polyethylene Glycol 3350 [Miralax] 17 g PO DAILY 06/15/16 Pregabalin [Lyrica] 75 mg PO BID 06/15/16 Simvastatin [Zocor] 20 mg PO HS 06/15/16 ALPRAZolam [Xanax] 1 mg PO TID PRN #0 tablet 06/17/16 Cholecalciferol [Vitamin D] 2,000 unit PO DAILY capsule 06/17/16 Insulin Glargine,Hum.rec.anlog [Lantus] 15 units SC BID vial 06/17/16 Insulin Lispro [Humalog] 0 units SC ACINS vial 06/17/16 QUEtiapine FUMARATE [Seroquel] 100 mg PO HS #30 tablet 06/17/16 <Sowmya Irwin - Last Filed: 07/14/16 08:35> (1) DKA (diabetic ketoacidoses) Diagnosis(s): with metabolic acidosis due T1DM. Problem: Acute Qualifiers: Diabetes mellitus type: type 1 Diabetes mellitus complication detail: without coma Qualified Code(s): E10.10 - Type 1 diabetes mellitus with ketoacidosis without coma (2) Bipolar 1 disorder, depressed, moderate Problem: Acute (3) Suicidal ideation Diagnosis(s): due to Bipolar disorder depressed , Moderate. [ Psych consult]. Problem: Acute (4) Non compliance w medication regimen Problem: Acute Description of Stay: Date of admission: 06/15/16 Date of discharge: 06/17/16 06/15/16 35 year old male who stopped taking his diabetic medications due to depression. Admitted with DKA, blood sugar 689 with serum ketones positive. started on insulin gtt. very lethargic, npo. 06/16/16 more awake and alert. admitted to suicidal tendency. isacc harry to see - changed psych meds around. DKA due to non compliance. insulin gtt continued until later in the day when the metabolic acidosis was corrected, then pt was started on lantus 15 units bid. started on oral diet. 06/17/16 stable overnight. d/c with lantus 15 units bid with humalog sliding scale. follow up made with isacc harry, who started seroquel at . Procedures Performed: none Results and Findings: Laboratory Tests 06/15/16 06/16/16 06/17/16 15:06 07:10 05:30 WBC 9.5 12.0 H D 5.2 D Hgb 13.5 11.3 L 11.6 L Hct 32.8 L 33.4 L Plt Count 332 265 242 Laboratory Tests 06/15/16 06/16/16 06/16/16 23:00 07:10 13:20 Plasma Sodium 141 140 139 Potassium 5.1 H 3.9 D 4.0 Chloride 106 108 H 108 H Carbon Dioxide 10.8 L 14.3 L 18.3 L BUN 11 10 9 Creatinine 1.00 1.01 0.92 06/17/16 05:30 Plasma Sodium 142 Potassium 3.5 D Chloride 108 H Carbon Dioxide 23.3 L BUN 7 Creatinine 0.80 06/15/16 16:28 Urine Marijuana (THC) Positive H Discharge Disposition: Home self care Discharge Activity: Activity as tolerated Discharge Diet: Consistent carbs Consultation Done:: Isacc Schaeffer (psychiatry)
[2016-06-17] MEDS: ENOXAPARIN SODIUM 40 MG/0.4 ML SYRG SC SCH (10:38)
[2016-06-17] MEDS ORDERED: NAPH,MB-DB/K PH,MBDB 1 PACKET PACKET PO SCH (11:00)
[2016-06-17] MEDS ORDERED: POTASSIUM CHLORIDE 20 MEQ TABLET.SA PO ONE (12:00)
== END 2016-06-17 12:45 | disposition home or self-care (01) | DRG 639 ==
LOC: ER 14:11 → MS 16:40 → SCU 16:40 → UNDOADMIN 16:40 → MS 06-16 17:12
PROVIDERS: ADMIT Internal Medicine; ATTEND Internal Medicine
PROC: 4A033R1 Measurement of Arterial Saturation, Peripheral, Percutaneous Approach (ICD-10-PCS; principal; 2016-06-15)
PROC: 05H933Z Insertion of Infusion Device into Right Brachial Vein, Percutaneous Approach (ICD-10-PCS; principal; 2016-06-15)
DX: E10.10 Type 1 diabetes mellitus with ketoacidosis without coma (principal); F41.8 Other specified anxiety disorders; F17.210 Nicotine dependence, cigarettes, uncomplicated; E86.0 Dehydration; Z91.14 Patient's other noncompliance with medication regimen; Z79.4 Long term (current) use of insulin; Z79.82 Long term (current) use of aspirin
CPT/HCPCS: 36415; 36569; 36600; 71010; 80048; 80053; 80307; 81001; 82009; 82803; 83735; 84100; 84443; 84484; 85025; 93005; 96361; 96365; 96366; 96367; 99284; G0480; G0481

== ENCOUNTER 2016-10-14 20:29 | Emergency (ER) | payer MEDICARE, MEDICAID ==
[2016-10-14] MEDS ORDERED: HYDROcodone/ACETAMINOPHEN 1 EACH TABLET PO ONE (21:06)
[2016-10-14] MEDS ORDERED: AMOX TR/POTASSIUM CLAVULANATE 875 MG TABLET PO ONE (21:06)
[2016-10-14] MEDS ORDERED: HYDROcodone/ACETAMINOPHEN 1 EACH TABLET ONE (21:10)
[2016-10-14] MEDS ORDERED: AMOX TR/POTASSIUM CLAVULANATE 875 MG TABLET ONE (21:10)
--- NOTE | 2016-10-14 21:14 | ERNOTE ---
ENT HPI Date of Service: 10/14/16 Presenting Symptoms: other - left ear pain, drainage Time Seen by Provider: 10/14/16 21:02 Source: patient - Immun/Allergies/Home Medications Immunizations: IMMUNIZATION HX Immunizations Up to Date Yes History of Influenza Vaccine Yes Hx Pneumococcal Vaccination No Allergies/Adverse Reactions: Allergies Allergy/AdvReac Type Severity Reaction Status Date / Time Penicillins Allergy Intermediate Hives Verified 10/14/16 20:36 Home Medications: HOME MEDICATIONS Polyethylene Glycol 3350 [Miralax] 17 g PO PRN PRN 06/15/16 [Last Taken Unknown] Pregabalin [Lyrica] 75 mg PO BID 06/15/16 [Last Taken Unknown] ALPRAZolam [Xanax] 1 mg PO TID PRN #0 tablet 06/17/16 [Last Taken Unknown] Insulin Glargine,Hum.rec.anlog [Lantus] 15 units SC BID vial 06/17/16 [Last Taken Unknown] Insulin Lispro [Humalog] 0 units SC ACINS vial 06/17/16 [Last Taken Unknown] QUEtiapine FUMARATE [Seroquel] 100 mg PO HS #30 tablet 06/17/16 [Last Taken Unknown] Amox Tr/Potassium Clavulanate [Augmentin 875-125 Tablet] 875 mg PO Q12H #20 tab 10/14/16 [Last Taken Unknown] HYDROcodone/ACETAMINOPHEN [[place] 5-325] 1 tab PO Q4H PRN #10 tab 10/14/16 [Last Taken Unknown] - History of Present Illness Narrative: This is a 35-year-old male who comes to the emergency department complaining of one day of left ear pain. He says he's had decreased hearing. He has had no recent upper respiratory infection. Over the last half hour or so he has noted some drainage from the ear. He does admit putting a Q-tip into it yesterday. He denies fever chills nausea vomiting or any other complaints. Review of Systems - Review of Systems Constitutional: Present: no symptoms reported EYE: Present: no symptoms reported ENT: Present: See HPI, ear pain, other - decreased hearing left ear Respiratory: Present: no symptoms reported Cardiology: Present: no symptoms reported Gastrointestinal/Abdominal: Present: no symptoms reported Genitourinary: Present: no symptoms reported Musculoskeletal: Present: no symptoms reported Neurological: Present: no symptoms reported Psych: Present: no symptoms reported - Patient's Past Medical History Patient History - Medical: Anxiety, Bipolar, Diabetes Type 1, Depression Patient History - Cardiac/Respiratory: No pertinent hx Patient History - Cancer: No Hx of Cancer Patient History - Surgical Procedures: Amputation Patient History - Other: None - Family History Mother Family History - Medical: Diabetes Type 2 Insulin Dependent Father Family History - Medical: No pertinent hx Maternal Grandfather Family History - Cancer: Esophageal Maternal Grandmother Family History - Cancer: Lymphoma - Social History Living Situations: home Abuse History: No History of abuse Psych History: Hx of Anxiety, Hx of Depression Smoking Status: Current every day smoker Have you smoked in the past 12 months: Yes Do you dip or chew tobacco: No Alcohol Use: none Drug Use: marijuana - Immunizations Immunizations Up to Date: Yes Hx Pneumococcal Vaccination: No History of Influenza Vaccine: Yes Physical Exam - Physical Exam General Appearance: Present: wd/wn, alert, no apparent distress Head Exam: Present: normal inspection, no evidence of injury Eye Exam: Normal inspection: bilateral, PERRL: bilateral Ears, Nose, Throat: Present: normal pharynx, other - patient has a left-sided otitis media. The tympanic membrane is a very dull weathers white. There is erythema around the margin. No reflex of the light. I do not see any obvious perforation. Neck: Present: normal inspection, nontender Respiratory: Present: no respiratory distress, normal breath sounds, lungs clear Cardiovascular/Chest: Present: regular rate, rhythm, no murmur Gastrointestinal/Abdominal: Present: normal bowel sounds, nontender Back Exam: Present: normal inspection, no CVA tenderness Neurological Exam: Present: alert, oriented, normal mood/affect, no motor/ sensory deficits Skin Exam: Present: normal color, warm/dry Lymphatic Exam: Present: no adenopathy ED Progress - Vital Signs Vital Signs: Vital Signs 10/14/16 20:38 Temperature 37.3 C Pulse Rate 105 H Respiratory 16 Rate Blood Pressure 132/85 O2 Sat by Pulse 98 Oximetry - Progress/Reassessment Chief Complaint: Earache Departure Clinical Impression: Otitis media - Departure Disposition: Home self-care Condition: Stable Instructions: Otitis Media, Adult, [id number] Additional Instructions: As we discussed, U appear to have an infection of her left ear. This is called a middle ear infection. He needed take the prescribed antibiotics for all 10 days. He should start feeling much better within the next 24 hours. You can take the [place] that I have given to you to help with symptoms. CRYSTAL Otero family doctor and set up a follow-up appointment Certainly if you develop any new or worrisome symptoms she should return to the emergency department Referrals: Mitchell Peres MD [Primary Care Provider] - Prescriptions: Amox Tr/Potassium Clavulanate [Augmentin 875-125 Tablet] 875 mg PO Q12H #20 tab HYDROcodone/ACETAMINOPHEN [[place] 5-325] 1 tab PO Q4H PRN #10 tab PRN Reason: Pain
[2016-10-14 22:25] VITALS: BP 135/97
== END 2016-10-14 21:43 | disposition home or self-care (01) ==
LOC: ER 20:29
DX: H66.92 Otitis media, unspecified, left ear (principal); E11.9 Type 2 diabetes mellitus without complications; F41.8 Other specified anxiety disorders; F17.200 Nicotine dependence, unspecified, uncomplicated

== ENCOUNTER 2016-10-19 22:19 | Inpatient (IN) | payer MEDICARE, MEDICAID ==
[2016-10-19] MEDS ORDERED: NORMAL SALINE 1,000 ML IV ONE (23:08)
--- NOTE | 2016-10-19 23:09 | ERNOTE ---
Medical Problem HPI - General Chief Complaint: Diabetes Related Problem Time Seen by Provider: 10/19/16 22:58 Source: family Exam Limitations: clinical condition - Immun/Allergies/Home Medications Immunizations: IMMUNIZATION HX Immunizations Up to Date Yes History of Influenza Vaccine Yes Hx Pneumococcal Vaccination No Allergies/Adverse Reactions: Allergies Penicillins Allergy (Intermediate, Verified 10/19/16 22:28) Hives Home Medications: HOME MEDICATIONS Polyethylene Glycol 3350 [Miralax] 17 g PO PRN PRN 06/15/16 [Last Taken Unknown] Pregabalin [Lyrica] 75 mg PO BID 06/15/16 [Last Taken Unknown] ALPRAZolam [Xanax] 1 mg PO TID PRN #0 tablet 06/17/16 [Last Taken Unknown] Insulin Glargine,Hum.rec.anlog [Lantus] 15 units SC BID vial 06/17/16 [Last Taken Unknown] Insulin Lispro [Humalog] 0 units SC ACINS vial 06/17/16 [Last Taken Unknown] HYDROcodone/ACETAMINOPHEN [[place] 5-325] 1 tab PO Q4H PRN #10 tab 10/14/16 [Last Taken Unknown] - History of Present History Narrative: Pt has been sick since monday with ear pain and fever. He was seen in this ED at that time and prescribed antibiotics. He had trouble swallowing them and continued to have ear pain. He was seen in the walk in clinic today and was prescribed amoxicillin but could not take it. He continued to have decrease in mental status and his family brought him in Timing: getting worse Severity: moderate Review of Systems - Narrative Narrative: Due to patients decreased mental status ROS taken from patient's mom - Review of Systems Constitutional: Present: recent illness - ear infection EYE: Present: no symptoms reported ENT: Present: ear pain, ear discharge - left ear Respiratory: Present: no symptoms reported Cardiology: Present: no symptoms reported Gastrointestinal/Abdominal: Present: nausea Genitourinary: Present: no symptoms reported Musculoskeletal: Present: no symptoms reported Skin: Present: no symptoms reported Neurological: Present: weakness - general Endocrine: Present: no symptoms reported, unexplained weight loss Hematologic/Lymphatic: Present: no symptoms reported Psych: Present: emotional problems - Patient's Past Medical History Patient History - Medical: Anxiety, Bipolar, Diabetes Type 1, Depression Patient History - Cardiac/Respiratory: No pertinent hx Patient History - Cancer: No Hx of Cancer Patient History - Surgical Procedures: Amputation Patient History - Other: None - Family History Mother Family History - Medical: Diabetes Type 2 Insulin Dependent Father Family History - Medical: No pertinent hx Maternal Grandfather Family History - Cancer: Esophageal Maternal Grandmother Family History - Cancer: Lymphoma - Social History Living Situations: home Abuse History: No History of abuse Psych History: Hx of Anxiety, Hx of Depression Smoking Status: Current every day smoker Alcohol Use: occasionally Drug Use: marijuana - Immunizations Immunizations Up to Date: Yes Hx Pneumococcal Vaccination: No History of Influenza Vaccine: Yes Physical Exam - Physical Exam General Appearance: Present: wd/wn, moderate distress, lethargic Head Exam: Present: normal inspection, no evidence of injury Eye Exam: Normal inspection: bilateral, PERRL: bilateral Ears, Nose, Throat: Present: normal except - - left EAC erythematous, swollen with discharge Neck: Present: normal inspection, nontender Respiratory: Present: no respiratory distress, normal breath sounds, no accessory muscle use, lungs clear Cardiovascular/Chest: Present: regular rate, rhythm, no murmur, normal peripheral pulses Gastrointestinal/Abdominal: Present: nondistended, soft, abnormal bowel sounds - hypoactive Back Exam: Present: normal inspection, no vertebral tenderness Extremity Exam: Present: normal inspection, normal range of motion Neurological Exam: Present: disoriented to time, disoriented to place Skin Exam: Present: normal color, warm/dry Lymphatic Exam: Present: no adenopathy ED Progress - Results and Orders Patient's Lab Results:: I have reviewed the patient's lab results. Results and Orders: Laboratory Tests 10/19/16 10/19/16 23:17 23:17 WBC 16.6 H Hgb 15.3 Hct 48.7 Plt Count 386 Sodium 137 Potassium 6.0 H D Chloride 95 L Carbon Dioxide 7.8 L Anion Gap 40.2 H BUN 19 D Creatinine 1.64 H D Random Glucose 542 H* Calcium 11.1 H Total Bilirubin 0.6 AST 7 ALT 13 L Alkaline Phosphatase 176 H Total Protein 9.3 H Albumin 5.0 Serum Ketones Positive - 10mg/dl H Laboratory Tests 10/20/16 00:57 pCO2 Less than 14.9 L* pO2 138.5 H HCO3 3.4 L Total CO2 3.7 L Base Excess -22.9 L ABG pH 7.15 L* ABG O2 Sat (Measured) 98.1 H - Vital Signs Patient's Vital Signs:: I have reviewed the patient's vital signs. Vital Signs: Vital Signs 10/19/16 22:21 Temperature 37.0 C Pulse Rate 121 H Respiratory 20 Rate Blood Pressure 143/92 O2 Sat by Pulse 100 Oximetry - Progress/Reassessment Chief Complaint: Diabetes Related Problem Progress:: Improved Progress Note-Subjective: 10/20/16 02:15 Spoke with Anna CLAYTON hospitalist about admission. She will check with the house worker as there is some discussion about whether or not he should go to SCU or could go to med/surg. She will call me back 10/20/16 02:45 Call back from Anna, she agrees with admit. will see patient in the ED Departure - Departure Clinical Impression: Ketoacidosis in diabetes mellitus Disposition: [facility] Condition: Serious
[2016-10-19 23:20] LABS: Hematocrit 48.7 % (42.0-52.0); Hemoglobin 15.3 gm/dL (13.5-18.0); Mean Cell Volume 101.5 fl (78-100); Mean Corpuscular Hemoglobin 31.9 pg (27-31); Mean Corpuscular Hgb Conc 31.4 g/dl (32-36); Mean Platelet Volume 9.7 fl (6.0-9.5); Neutrophil # 14.6 K/mm3 (1.3-6.0); Neutrophil % 87.6 % (42-75.0); Platelet Count 386 K/mm3 (150-450); Red Cell Distribution Width 12.8 % (11.5-14.0); White Blood Count 16.6 K/mm3 (4.0-10.5)
[2016-10-19] MEDS ORDERED: ONDANSETRON HCL/PF 2 MG/ML VIAL ONE (23:45)
[2016-10-19] MEDS ORDERED: ONDANSETRON HCL/PF 2 MG/ML VIAL IV ONE (23:47)
[2016-10-20 00:10] LABS: ALT 13 U/L (19-67); AST 7 U/L (0-48); Alkaline Phosphatase * 176 U/L (50-170); Anion Gap 40.2 mmol/L (6.8-13.8); BUN/Creatinine Ratio 11.6 (9.0-21.6); Bilirubin, Total 0.6 mg/dL (0.0-1.1); Blood Urea Nitrogen 19 mg/dL (6-23); Calcium * 11.1 mg/dL (7.9-10.9); Carbon Dioxide 7.8 mmol/L (24-32.6); Chloride 95 mmol/L (97-106); Sodium 137 mmol/L (132-142); Total Protein 9.3 gm/dL (6.2-8.2)
[2016-10-20 00:12] LABS: Glucose * 542 mg/dL (70-110)
--- NOTE | 2016-10-20 00:57 | OR ---
Anesthesia Procedure Note - Anesthesia Procedure Note Narrative: Vital Signs - Last Taken Temp 37.0 C 10/19/16 22:21 Pulse 133 H 10/20/16 00:50 Resp 24 H 10/20/16 00:50 BP 151/93 10/20/16 00:50 Pulse Ox 100 10/20/16 00:50 O2 Oxygen Delivery Method Room Air 10/20/16 00:56 ANESTHESIA PROCEDURE NOTE Date of procedure: 10/20/2016 Time of procedure: 44. Performed by: Osvaldo Boyd CRNA Dry Cans Operator: None . Preprocedure diagnosis: Difficult IV access. Dehydration. Post procedure diagnosis: Same. Procedure: IV start Indications: Difficult IV access. Findings: 22-gauge IV started in patient's right-hand EBL: Minimal. Fluids: N/A. Specimen: N/A. Post procedure condition: The patient tolerated the procedure well. No complications were noted. Thank you for this consultation Osvaldo Boyd CRNA
[2016-10-20] MEDS ORDERED: NORMAL SALINE 1,000 ML IV ONE ×3 (02:24→06:01)
[2016-10-20 02:30] LABS: Urine Bilirubin 1 mg/dl (NEGATIVE); Urine Blood 25 /ul (NEGATIVE); Urine Ketone Large mg/dL (NEGATIVE); Urine Nitrite Negative (NEGATIVE); Urine Protein 30 mg/dL (NEGATIVE); Urine Specific Gravity 1.025 SP.GR. (1.005-1.030); Urine Urobilinogen Normal (NORMAL); Urine pH 5.5 pH (5.0-7.0)
[2016-10-20 02:33] LABS: Cocaine Ur Negative (NEGATIVE); Urine Barbiturate Negative (NEGATIVE); Urine Benzodiazepines Negative (NEGATIVE); Urine Opiates Negative (NEGATIVE); Urine PCP Negative (NEGATIVE)
[2016-10-20] MEDS ORDERED: INSULIN REGULAR, HUMAN 100 UNITS/ML VIAL IV ONE (02:39)
[2016-10-20 02:43] LABS: Urine Appearance Clear; Urine Bacteria None Seen; Urine Color Pale Yellow; Urine RBC 0-5 /hpf (0-5); Urine WBC 0-5 /hpf (0-5)
[2016-10-20 02:45] LABS: Urine THC Positive (NEGATIVE)
[2016-10-20] MEDS ORDERED: INSULIN REGULAR, HUMAN 100 UNITS/ML VIAL ONE (02:46)
[2016-10-20] MEDS ORDERED: ONDANSETRON HCL/PF 2 MG/ML VIAL IV ONE (03:03)
--- NOTE | 2016-10-20 03:14 | HP ---
Chief Complaint - Chief Complaint Date of Service: 10/20/16 Time of Service: 03:03 Chief Complaint: ''ear infection,". Source of HPI- Pt; unreliable, ER provider notes, Rn notes. History of Present Illness: Mr. Castillo is a 35-yr-old WM pt of Dr. Mitchell Peres with a PMH of: Anxiety( generalized), Depression, DM I, Myalgia, Insomnia, Pneumothorax & PTSD. Pt is in a drowsy state but is able to give some information. He still resides with his parents however, they were not reachable by phone to assist in providing insight into pt's illness. Apparently pt has been sick since Monday10/14/16, with LT ear pain and fevers. He was seen at the [facility] ER and was determined to have Otitis Media. He was discharged home on Augmentin 875-125 mg B.I.D x 10 days & [place] for pain. He then again presented to the Walk- in clinic on 10/19 with complaints of persistent LT ear pain. He was found to have Acute otitis Externa. He was given Decadron IM injection and prescription of ofloxacin ear drops & Naproxen. He was brought in to [facility] ER tonight by his family due to decreased LOC. At the ED, his lab-work was remarkable for: blood sugar of 542, positive serum Ketones, K level of 6.0, WBC of 16,000 with a left shift. The ABGs showed Compensated metabolic acidosis. The UA did not show any infection and urine toxicology screen was positive for THC only. He will require a 2 midnight stay to ensure his DKA resolves. - Patient's Past Medical History Patient History - Medical: Anxiety, Bipolar, Diabetes Type 1, Depression Patient History - Cardiac/Respiratory: No pertinent hx Patient History - Cancer: No Hx of Cancer Patient History - Surgical Procedures: Amputation Patient History - Other: None - Family History Mother Family History - Medical: Diabetes Type 2 Insulin Dependent Father Family History - Medical: No pertinent hx Maternal Grandfather Family History - Cancer: Esophageal Maternal Grandmother Family History - Cancer: Lymphoma - Social History Living Situations: home Abuse History: No History of abuse Psych History: Hx of Anxiety, Hx of Depression Smoking Status: Current every day smoker Alcohol Use: occasionally Drug Use: marijuana - Immunizations Immunizations Up to Date: Yes Hx Pneumococcal Vaccination: No History of Influenza Vaccine: Yes Review Of Systems (GEN) - Review of Systems Generalized/Overall Review: Present: Malaise. Absent: Weakness, Chills, Fever EENTM: Present: Ear Pain - LT ear since monday. Absent: Eye Pain, Blurred Vision Respiratory: Absent: Cough, Shortness of Breath, Orthopnea Cardiac: Absent: Chest Pain, Edema Abdominal: Present: Nausea, Vomiting, Diarrhea. Absent: Hematemesis, Abdominal Pain Genitourinary: Absent: Burning, Itching, Frequency Musculoskeletal: Absent: Joint Pain, Back Pain Neurological: Absent: Headache, Depressed, Weakness Skin: Absent: Dryness, Lesions Endocrine: Absent: Intolerance to Cold, Increased Thirst Misc: All systems neg except as marked Immunizations: IMMUNIZATION HX Immunizations Up to Date Yes History of Influenza Vaccine Yes Hx Pneumococcal Vaccination No Allergies/Adverse Reactions: Allergies Allergy/AdvReac Type Severity Reaction Status Date / Time Penicillins Allergy Intermediate Hives Verified 10/19/16 22:28 Home Medications: HOME MEDICATIONS Polyethylene Glycol 3350 [Miralax] 17 g PO PRN PRN 06/15/16 [Last Taken Unknown] Pregabalin [Lyrica] 75 mg PO BID PRN 06/15/16 [Last Taken Unknown] ALPRAZolam [Xanax] 1 mg PO TID PRN #0 tablet 06/17/16 [Last Taken Unknown] Insulin Lispro [Humalog] 0 units SC ACINS vial 06/17/16 [Last Taken Unknown] HYDROcodone/ACETAMINOPHEN [[place] 5-325] 1 tab PO Q4H PRN #10 tab 10/14/16 [Last Taken Unknown] FLUoxetine HCL [Prozac] 20 mg PO DAILY 10/20/16 [Last Taken Unknown] Insulin Glargine,Hum.rec.anlog [Lantus] 15 units SC BID 10/20/16 [Last Taken Unknown] Naproxen [Naprosyn] 500 mg PO Q12H PRN 10/20/16 [Last Taken Unknown] Ofloxacin [Floxin Otic] 10 drop LEFT EAR BID 10/20/16 [Last Taken Unknown] Exam - Exam Vital Signs: Vital Signs - Last Taken Temp 37.0 C 10/19/16 22:21 Pulse 131 H 10/20/16 02:01 Resp 20 10/20/16 02:01 BP 152/88 08/24/17 02:01 Pulse Ox 100 10/20/16 02:01 Constitutional: Present: No distress, Lethargic, Thin and frail ENT Exam: Present: TM bulging, other - LT ear is tender, draining purulent material, Eye Exam: bilateral eye: normal inspection, PERRL Neck: Present: non-tender, full range of motion, supple Back Exam: Present: normal inspection, no CVA tenderness Respiratory: Present: accessory muscle use, No rales, No wheezing Cardiovascular/Chest: Present: normal peripheral pulses, no chest tenderness, no edema, tachycardia Abdomen: Present: Normal bowel sounds, soft, nontender /Rectal: Present: Exam deferred Extremity: Present: normal range of motion, no pedal edema Skin Exam: Present: warm/dry, no cyanosis Lymphatic: Present: no adenopathy Neurologic: Present: oriented x 3, depressed affect Appearance: Present: impaired insight Eye contact: Present: decreased rate of speech Thoughts: Present: no apparent hallucination Diagnostic Studies: Laboratory Results WBC 16.6 K/mm3 (4.0-10.5) H 10/19/16 23:17 RBC 4.80 M/mm3 (4.7-6.0) 10/19/16 23:17 Hgb 15.3 gm/dL (13.5-18.0) 10/19/16 23:17 Hct 48.7 % (42.0-52.0) 10/19/16 23:17 MCV 101.5 fl (78-100) H 10/19/16 23:17 MCH 31.9 pg (27-31) H 10/19/16 23:17 MCHC 31.4 g/dl (32-36) L 10/19/16 23:17 RDW 12.8 % (11.5-14.0) 10/19/16 23:17 Plt Count 386 K/mm3 (150-450) 10/19/16 23:17 MPV 9.7 fl (6.0-9.5) H 10/19/16 23:17 Immature Gran % (Auto) 0.80 % (0.001-0.429) H 10/19/16 23:17 Immature Gran # (Auto) 0.13 K/mm3 (0.000-0.0310) H 10/19/16 23:17 Neutrophils % 87.6 % (42-75.0) H 10/19/16 23:17 Lymphocytes % 6.4 % (20-51) L 10/19/16 23:17 Monocytes % 4.6 % (0.0-9) 10/19/16 23:17 Eosinophils % 0.1 % (0.0-3.0) 10/19/16 23:17 Basophils % 0.5 % (0.0-1.0) 10/19/16 23:17 Nucleated RBC % 0.0 k/mm3 (0-1) 10/19/16 23:17 Neutrophils # 14.6 K/mm3 (1.3-6.0) H 10/19/16 23:17 Lymphocytes # 1.1 k/mm3 (1.5-3.5) L 10/19/16 23:17 Monocytes # 0.8 k/mm3 (0.0-1.0) 10/19/16 23:17 Eosinophils # 0.0 k/mm3 (0.0-0.7) 10/19/16 23:17 Absolute Basophils 0.1 k/mm3 (0.0-0.1) 10/19/16 23:17 pCO2 Less than 14.9 mmHg (35.0-48.0) L* 10/20/16 00:57 pO2 138.5 mmHg (83.0-108.0) H 10/20/16 00:57 HCO3 3.4 mmol/L (21.0-28.0) L 10/20/16 00:57 Total CO2 3.7 mmol/L (19.0-24.0) L 10/20/16 00:57 Base Excess -22.9 mmol/L (-2.0-3.0) L 10/20/16 00:57 ABG pH 7.15 (7.35-7.45) L* 10/20/16 00:57 ABG O2 Sat (Measured) 98.1 % (94.0-98.0) H 10/20/16 00:57 Sodium 137 mmol/L (132-142) 10/19/16 23:17 Plasma Sodium 144 mmol/L (130-142) H 10/19/16 23:17 Potassium 6.0 mmol/L (3.4-4.6) H D 10/19/16 23:17 Chloride 95 mmol/L (97-106) L 10/19/16 23:17 Carbon Dioxide 7.8 mmol/L (24-32.6) L 10/19/16 23:17 Anion Gap 40.2 mmol/L (6.8-13.8) H 10/19/16 23:17 BUN 19 mg/dL (6-23) D 10/19/16 23:17 Creatinine 1.64 mg/dL (0.4-1.4) H D 10/19/16 23:17 Est GFR (Non-Af Amer) 51 mL/min (60-130) L D 10/19/16 23:17 BUN/Creatinine Ratio 11.6 (9.0-21.6) 10/19/16 23:17 Random Glucose 542 mg/dL (70-110) H* 10/19/16 23:17 Calcium 11.1 mg/dL (7.9-10.9) H 10/19/16 23:17 Calcium Adj for Albumin 10.0 mg/dL (8.4-10.2) 10/19/16 23:17 Total Bilirubin 0.6 mg/dL (0.0-1.1) 10/19/16 23:17 AST 7 U/L (0-48) 10/19/16 23:17 ALT 13 U/L (19-67) L 10/19/16 23:17 Alkaline Phosphatase 176 U/L (50-170) H 10/19/16 23:17 Total Protein 9.3 gm/dL (6.2-8.2) H 10/19/16 23:17 Albumin 5.0 gm/dl (3.4-5.0) 10/19/16 23:17 Urine Color Pale yellow 10/20/16 01:52 Urine Appearance Clear 10/20/16 01:52 Urine pH 5.5 pH (5.0-7.0) 10/20/16 01:52 Ur Specific [place] 1.025 SP.GR. (1.005-1.030) 10/20/16 01:52 Urine Protein 30 mg/dL (NEGATIVE) H 10/20/16 01:52 Urine Glucose (UA) >=1000 mg/dL (NEGATIVE) H 10/20/16 01:52 Urine Ketones Large mg/dL (NEGATIVE) 10/20/16 01:52 Urine Blood 25 /ul (NEGATIVE) H 10/20/16 01:52 Urine Nitrate Negative (NEGATIVE) 10/20/16 01:52 Urine Bilirubin 1 mg/dl (NEGATIVE) H 10/20/16 01:52 Urine Ictotest Negative (NEGATIVE) 10/20/16 01:52 Prot Sulfosalicylic Acd Negative mg/dL (0) 10/20/16 01:52 Urine Urobilinogen Normal EU/dl (NORMAL) 10/20/16 01:52 Ur Leukocyte Esterase Negative /ul (NEGATIVE) 10/20/16 01:52 Urine RBC 0-5 /hpf (0-5) 10/20/16 01:52 Urine WBC 0-5 /hpf (0-5) 10/20/16 01:52 Ur Epithelial Cells 0-5 /hpf (0-5) 10/20/16 01:52 Urine Bacteria None seen (NONE) 10/20/16 01:52 Urine Culture Comments No culture indicated 10/20/16 01:52 Urine Opiates Screen Negative (NEGATIVE) 10/20/16 01:52 Barbiturate Screen Negative (NEGATIVE) 10/20/16 01:52 Ur Phencyclidine Scrn Negative (NEGATIVE) 10/20/16 01:52 Urine Amphetamine Negative (NEGATIVE) 10/20/16 01:52 U Benzodiazepines Scrn Negative (NEGATIVE) 10/20/16 01:52 Urine Cocaine Screen Negative (NEGATIVE) 10/20/16 01:52 Urine Marijuana (THC) Positive (NEGATIVE) H 10/20/16 01:52 Serum Ketones Positive - 10mg/dl (NEGATIVE) H 10/19/16 23:17 Assessment/Plan - Assessment/Plan (1) DKA (diabetic ketoacidoses) Assessment: Pt is a 35 yr old WM with known hx of DM I. He was recently found to have Acute Otitis externa of the LT ear and has been on 2 different antibiotics: Augmentin 875-125 mg po ( 10/14) and he went back to the walk-in clinic on 10/19 and was given Otic drops. Suspect that his DKA was triggered by infection and along with non- compliance with insulin regimen. He reported skipping insulin on . He presented with hyperglycemia ( 542), was positive for serum ketones, ph of 7.15, serum bicarb of 5.0. Received initial IVF hydration with nearly 1.5 L of NS at the ED and will continue with the IVF at the rate of 250-500ml/hr as the Fluid deficit is usually 4-6 L & due to signs of mild dehydration: tachycardia, vomiting & elevated Cr. Received 0.1 unit/kg bolus at the ED & Insulin drip started at 0.1u/kg/hr- to target a drop of 50-75mg/dL /hr. Will follow the DKA protocol with close monitoring in the SCU. Will monitor serial BMP q 2 hours until stable. Resolution will be noted with: Glucose < 200, AG of < 12 or bicarbonate > 15, and ph > 7.3, & when pt is able to eat. He remains NPO as any ingestion of food/ liquids causes him to feel nauseated Will continue IV insulin for 1-2 hrs after initiating SQ insulin, the DC IV insulin to prevent rebound hyperglycemia. Problem: Acute Qualifiers: Diabetes mellitus type: type 1 Diabetes mellitus complication detail: without coma Qualified Code(s): E10.10 - Type 1 diabetes mellitus with ketoacidosis without coma (2) Acute kidney injury Assessment: CR;1.62; Likely due to pre-renal causes from dehydration. Should get corrected with the Aggressive IVF. Check BMP Problem: Acute (3) Acute otitis externa Assessment: Due to the elevated WBC with Lt shift, will treat with Cefriaxone 2 gm IV and provide oral analgesics for pain. Continue with Oxfloxacin otic drops to the LT ear. Problem: Acute (4) Metabolic acidosis Problem: Acute (5) Bipolar 1 disorder Problem: Chronic (6) Depression Problem: Chronic Qualifiers: Depression Type: major depressive disorder Major depression recurrence: recurrent Active/Remission status: currently active Major depression episode severity: unspecified Qualified Code(s): F33.9 - Major depressive disorder, recurrent, unspecified (7) Diabetes type I Problem: Chronic Qualifiers: Diabetes mellitus complication status: with neurologic complications Diabetes mellitus complication detail: with polyneuropathy Qualified Code(s): E10.42 - Type 1 diabetes mellitus with diabetic polyneuropathy
[2016-10-20] MEDS ORDERED: NORMAL SALINE 1,000 ML IV PRN (03:20)
[2016-10-20] MEDS: INSULIN REGULAR HUMAN REC 100 UNITS in NORMAL SALINE 100 ML IV PRN (03:26)
[2016-10-20] MEDS ORDERED: POTASSIUM CHLORIDE 20 MEQ in DEXTROSE 5%-0.5 NORMAL SALINE 990 ML IV SCH (03:30)
[2016-10-20 04:14] LABS: Hematocrit 42.4 % (42.0-52.0); Hemoglobin 13.5 gm/dL (13.5-18.0); Mean Cell Volume 99.5 fl (78-100); Mean Corpuscular Hemoglobin 31.7 pg (27-31); Mean Corpuscular Hgb Conc 31.8 g/dl (32-36); Mean Platelet Volume 9.4 fl (6.0-9.5); Platelet Count 395 K/mm3 (150-450); Red Blood Count 4.26 M/mm3 (4.7-6.0); Red Cell Distribution Width 12.9 % (11.5-14.0); White Blood Count 23.2 K/mm3 (4.0-10.5)
[2016-10-20 04:16] LABS: Total Cells Counted 100
[2016-10-20 04:22] LABS: BUN/Creatinine Ratio 16.2 (9.0-21.6); Blood Urea Nitrogen 22 mg/dL (6-23); Calcium * 8.8 mg/dL (7.9-10.9); Chloride 107 mmol/L (97-106); Estimated Creat Clear 84.9; Glucose * 431 mg/dL (70-110); Sodium 141 mmol/L (132-142)
[2016-10-20] MEDS: ONDANSETRON HCL/PF 2 MG/ML VIAL IV PRN ×2 (04:22→15:38)
[2016-10-20 05:11] LABS: Band 2 % (0-2.0); Hypersegmented Polys 3+; Lymphocyte 6 % (20-51); Monocyte 14 % (0-9); Neutrophil 78 % (42-75); Neutrophil # 18.1 K/mm3 (1.3-6.0); Platelet Estimate Increased (NORMAL); Rouleaux 1+
[2016-10-20] MEDS ORDERED: ALPRAZolam 1 MG TABLET PO PRN (05:46)
[2016-10-20] MEDS ORDERED: PREGABALIN 75 MG CAPSULE PO PRN (05:46)
[2016-10-20] MEDS ORDERED: HYDROcodone/ACETAMINOPHEN 1 EACH TABLET PO PRN (05:46)
[2016-10-20] MEDS ORDERED: KETOROLAC TROMETHAMINE 15 MG/ML VIAL IV PRN (05:49)
[2016-10-20 06:33] LABS: Anion Gap 31.6 mmol/L (6.8-13.8); BUN/Creatinine Ratio 15.9 (9.0-21.6); Calcium * 8.8 mg/dL (7.9-10.9); Carbon Dioxide 7.1 mmol/L (24-32.6); Estimated Creat Clear 87.4; Potassium 4.7 mmol/L (3.4-4.6)
[2016-10-20] MEDS ORDERED: 0.5 NORMAL SALINE 1,000 ML IV PRN ×2 (06:47→06:48)
[2016-10-20] MEDS: POTASSIUM CHLORIDE 20 MEQ in NORMAL SALINE 1,000 ML IV SCH ×2 (08:07→08:48)
[2016-10-20 08:11] LABS: Anion Gap 32.3 mmol/L (6.8-13.8); BUN/Creatinine Ratio 14.7 (9.0-21.6); Calcium * 8.5 mg/dL (7.9-10.9); Carbon Dioxide 5.6 mmol/L (24-32.6); Estimated Creat Clear 89.5; Magnesium 2.2 mg/dL (1.2-2.8); Potassium 4.9 mmol/L (3.4-4.6)
[2016-10-20] MEDS: FLUoxetine HCL 20 MG CAPSULE PO SCH (08:13)
[2016-10-20] MEDS: OFLOXACIN 50 DROP BTL LEFT EAR SCH ×3 (08:13→20:32)
[2016-10-20] MEDS: DEXTROSE 5%-0.5 NORMAL SALINE 1,000 ML IV PRN ×3 (08:47→17:53)
[2016-10-20] MEDS ORDERED: OFLOXACIN 50 DROP BTL LEFT EAR SCH (09:00)
[2016-10-20] MEDS ORDERED: POLYETHYLENE GLYCOL 3350 119 GM BTL PO PRN ×2 (09:00→10:30)
[2016-10-20] MEDS: ENOXAPARIN SODIUM 40 MG/0.4 ML SYRG SC SCH (10:00)
[2016-10-20 10:08] LABS: BUN/Creatinine Ratio 14.2 (9.0-21.6); Calcium * 8.5 mg/dL (7.9-10.9); Carbon Dioxide 6.8 mmol/L (24-32.6); Estimated Creat Clear 96.2; Potassium 4.8 mmol/L (3.4-4.6)
[2016-10-20 13:34] LABS: Albumin * 3.2 gm/dl (3.4-5.0); Anion Gap 20.4 mmol/L (6.8-13.8); Bilirubin, Total 0.4 mg/dL (0.0-1.1); Calcium * 8.7 mg/dL (7.9-10.9); Carbon Dioxide 11.8 mmol/L (24-32.6); Potassium 4.2 mmol/L (3.4-4.6)
[2016-10-20] MEDS: PANTOPRAZOLE SODIUM 40 MG in NORMAL SALINE 100 ML IV SCH (15:38)
[2016-10-20 17:26] LABS: Albumin * 3.3 gm/dl (3.4-5.0); Anion Gap 21.2 mmol/L (6.8-13.8); BUN/Creatinine Ratio 11.6 (9.0-21.6); Bilirubin, Total 0.5 mg/dL (0.0-1.1); Ca. Corrected For Albumin 9.1 mg/dL (8.4-10.2); Calcium * 8.9 mg/dL (7.9-10.9); Carbon Dioxide 13.5 mmol/L (24-32.6); Potassium 4.7 mmol/L (3.4-4.6); Total Protein 7.4 gm/dL (6.2-8.2)
[2016-10-20 21:32] LABS: Anion Gap 18.2 mmol/L (6.8-13.8); BUN/Creatinine Ratio 11.3 (9.0-21.6); Bilirubin, Total 0.5 mg/dL (0.0-1.1); Ca. Corrected For Albumin 9.1 mg/dL (8.4-10.2); Calcium * 8.6 mg/dL (7.9-10.9); Carbon Dioxide 14.7 mmol/L (24-32.6); Potassium 3.9 mmol/L (3.4-4.6); Total Protein 6.5 gm/dL (6.2-8.2)
[2016-10-20] MEDS: POTASSIUM CHLORIDE 20 MEQ in DEXTROSE 5%-0.5 NORMAL SALINE 990 ML IV SCH (22:26)
[2016-10-21] MEDS: POTASSIUM CHLORIDE 20 MEQ in DEXTROSE 5%-0.5 NORMAL SALINE 990 ML IV SCH ×7 (02:44→21:03)
[2016-10-21] MEDS ORDERED: INSULIN REGULAR, HUMAN 100 UNITS/ML VIAL ONE (03:53)
[2016-10-21] MEDS: INSULIN REGULAR HUMAN REC 100 UNITS in NORMAL SALINE 100 ML IV PRN (04:00)
[2016-10-21 06:25] LABS: Albumin * 2.7 gm/dl (3.4-5.0); BUN/Creatinine Ratio 8.8 (9.0-21.6); Bilirubin, Total 0.4 mg/dL (0.0-1.1); Calcium * 8.3 mg/dL (7.9-10.9)
--- NOTE | 2016-10-21 06:47 | PN ---
Subjective - Date and Time Seen Date: 10/21/16 Time: 06:29 Subjective Narrative: Pt examined this am. Still drowsy but able to follow commands. Feels hungry and would like to try to eat. BS remained under 200 all night. No episodes of vomiting. V.S have been stable. No other acute events according to nursing. Objective - Vitals Vitals: Last Vital Signs Temp 36.2 C L 10/21/16 02:00 Pulse 76 10/21/16 05:00 Resp 16 10/21/16 05:00 BP 133/83 10/21/16 05:00 Pulse Ox 100 10/21/16 05:00 - Abnormal Lab Findings Abnormal Lab Findings: Abnormal Lab Results 10/20/16 10/20/16 10/20/16 Range/Units 06:16 07:54 09:50 Sodium 144 H 143 H (132-142) mmol/L Plasma Sodium 148 H 145 H 143 H (130-142) mmol/L Potassium 4.7 H 4.9 H 4.8 H (3.4-4.6) mmol/L Chloride 110 H 110 H 111 H (97-106) mmol/L Carbon Dioxide 7.1 L 5.6 L 6.8 L (24-32.6) mmol/L Anion Gap 31.6 H 32.3 H 27.0 H (6.8-13.8) mmol/L BUN/Creatinine Ratio (9.0-21.6) Random Glucose 324 H 250 H 283 H (70-110) mg/dL Phosphorus 2.0 L (2.2-4.2) mg/dL ALT (19-67) U/L Total Protein (6.2-8.2) gm/dL Albumin (3.4-5.0) gm/dl 10/20/16 10/20/16 10/20/16 Range/Units 13:10 17:08 21:15 Sodium (132-142) mmol/L Plasma Sodium (130-142) mmol/L Potassium 4.7 H (3.4-4.6) mmol/L Chloride 109 H 107 H 108 H (97-106) mmol/L Carbon Dioxide 11.8 L 13.5 L 14.7 L (24-32.6) mmol/L Anion Gap 20.4 H 21.2 H 18.2 H (6.8-13.8) mmol/L BUN/Creatinine Ratio (9.0-21.6) Random Glucose 277 H 269 H 212 H (70-110) mg/dL Phosphorus (2.2-4.2) mg/dL ALT 8 L 11 L 10 L (19-67) U/L Total Protein (6.2-8.2) gm/dL Albumin 3.2 L 3.3 L 3.0 L (3.4-5.0) gm/dl 10/21/16 Range/Units 06:05 Sodium (132-142) mmol/L Plasma Sodium (130-142) mmol/L Potassium 3.0 L D (3.4-4.6) mmol/L Chloride 107 H (97-106) mmol/L Carbon Dioxide 17.0 L (24-32.6) mmol/L Anion Gap 17.0 H (6.8-13.8) mmol/L BUN/Creatinine Ratio 8.8 L (9.0-21.6) Random Glucose 171 H (70-110) mg/dL Phosphorus (2.2-4.2) mg/dL ALT 8 L (19-67) U/L Total Protein 6.0 L (6.2-8.2) gm/dL Albumin 2.7 L (3.4-5.0) gm/dl - Exam Constitutional: Present: Alert, Oriented x3, Cooperative, Other - drowsy ENT Exam: Present: other - Lt ear has purulent drainage. RT ear is clear. Breasts: Present: Exam deferred Respiratory: Present: lungs clear, No rales, No wheezing Cardiovascular/Chest: Present: normal peripheral pulses, regular rate, rhythm, no edema Abdomen: Present: Normal bowel sounds, soft, nontender /Rectal: Present: Exam deferred Extremity: Present: normal range of motion, non-tender, normal inspection Skin Exam: Present: warm/dry, no cyanosis Lymphatic: Present: no adenopathy Neurologic: Present: alert, normal mood/affect, oriented x 3 Appearance: Present: appropriate appearance, appropriate insight Eye contact: Present: cooperative, good eye contact, normal speech Thoughts: Present: normal thought pattern, no apparent hallucination Assessment/Plan - Problems/Diagnosis (1) DKA (diabetic ketoacidoses) Problem: Acute Qualifiers: Diabetes mellitus type: type 1 Diabetes mellitus complication detail: without coma Qualified Code(s): E10.10 - Type 1 diabetes mellitus with ketoacidosis without coma Narrative: Received treatment according to the DKA protocol. Infection from LT ear along with insulin non- compliance likely precipitated the DKA. His blood sugars have remained under 200 for the past 10 hours, and he has nearly closed in on Anion gap this am. Will restart him on his home doses of insulin;Lantus 15 units b.i.d and 8 units before meals. Insulin gtt will be stopped after 1-2 hours of SQ insulin administration to prevent rebound hyperglycemia. He is stable to be transitioned to Med-Surg status. (2) Acute kidney injury Problem: Acute Narrative: Has resolved following IVF hydration. (3) Acute otitis externa Problem: Acute Narrative: LT ear is draining purulent material, has lost hearing and has tenderness on the Mastoid area. Mastoiditis is likely- Started on Ceftin to cover for this and will continue with Floxin otic drops per ENT recommendations. He will follow -up with ENT after discharge. (4) Hypokalemia Problem: Acute Narrative: 3.0, Will provide K replenishment. (5) Metabolic acidosis Problem: Acute (6) Bipolar 1 disorder Problem: Chronic (7) Depression Problem: Chronic Qualifiers: Depression Type: major depressive disorder Major depression recurrence: recurrent Active/Remission status: currently active Major depression episode severity: unspecified Qualified Code(s): F33.9 - Major depressive disorder, recurrent, unspecified (8) Diabetes type I Problem: Chronic Qualifiers: Diabetes mellitus complication status: with neurologic complications Diabetes mellitus complication detail: with polyneuropathy Qualified Code(s): E10.42 - Type 1 diabetes mellitus with diabetic polyneuropathy
[2016-10-21 06:56] LABS: Hematocrit 31.9 % (42.0-52.0); Hemoglobin 10.9 gm/dL (13.5-18.0); Mean Corpuscular Hemoglobin 31.8 pg (27-31); Mean Corpuscular Hgb Conc 34.2 g/dl (32-36); Mean Platelet Volume 9.4 fl (6.0-9.5); Neutrophil % 83.8 % (42-75.0); Platelet Count 276 K/mm3 (150-450); Red Blood Count 3.43 M/mm3 (4.7-6.0); Red Cell Distribution Width 12.7 % (11.5-14.0); White Blood Count 13.1 K/mm3 (4.0-10.5)
[2016-10-21] MEDS: CEFUROXIME AXETIL 500 MG TABLET PO SCH ×2 (07:32→19:02)
[2016-10-21] MEDS: POTASSIUM CHLORIDE 100 ML IV SCH ×4 (07:32→11:04)
[2016-10-21] MEDS: NYSTATIN 60 ML BTL PO SCH ×5 (08:36→21:03)
[2016-10-21] MEDS: OFLOXACIN 50 DROP BTL LEFT EAR SCH ×2 (08:37→20:57)
[2016-10-21] MEDS: INSULIN GLARGINE,HUM.REC.ANLOG 100 UNITS/ML VIAL SC SCH ×2 (08:38→21:01)
[2016-10-21] MEDS: FLUoxetine HCL 20 MG CAPSULE PO SCH (08:40)
[2016-10-21] MEDS: INSULIN ASPART 100 UNITS/ML VIAL SC SCH ×3 (08:44→16:50)
[2016-10-21] MEDS: KETOROLAC TROMETHAMINE 15 MG/ML VIAL IV PRN ×2 (08:58→23:45)
[2016-10-21] MEDS: ENOXAPARIN SODIUM 40 MG/0.4 ML SYRG SC SCH (09:58)
[2016-10-21] MEDS: PANTOPRAZOLE SODIUM 40 MG in NORMAL SALINE 100 ML IV SCH (15:16)
[2016-10-21] MEDS: INSULIN REGULAR, HUMAN 100 UNITS/ML VIAL SC SCH ×2 (17:26→21:02)
[2016-10-22] MEDS: POTASSIUM CHLORIDE 20 MEQ in DEXTROSE 5%-0.5 NORMAL SALINE 990 ML IV SCH (01:32)
[2016-10-22 05:30] LABS: Anion Gap 12.9 mmol/L (6.8-13.8); BUN/Creatinine Ratio 7.7 (9.0-21.6); Calcium * 8.4 mg/dL (7.9-10.9); Carbon Dioxide 22.3 mmol/L (24-32.6); Estimated Creat Clear 221.9; Potassium 3.2 mmol/L (3.4-4.6)
[2016-10-22] MEDS: INSULIN REGULAR, HUMAN 100 UNITS/ML VIAL SC SCH ×2 (07:24→12:11)
--- NOTE | 2016-10-22 08:15 | DS ---
(1) Thrush of mouth and esophagus Problem: Acute (2) Acute otitis externa Problem: Acute (3) Acute otitis media Problem: Acute (4) Hypokalemia Problem: Acute (5) Ketoacidosis in diabetes mellitus Problem: Acute (6) Diabetes type I Problem: Chronic Qualifiers: Diabetes mellitus complication status: with neurologic complications Diabetes mellitus complication detail: with polyneuropathy Qualified Code(s): E10.42 - Type 1 diabetes mellitus with diabetic polyneuropathy Description of Stay: Pt. admitted in DKA secondary to severe left ear infection - otitis media with TM perforation and probable early mastoiditis (given tenderness at mastoid prominence on left). He was seen by ENT, started on ofloxacin drops and later started on Cefuroxime by me for broader coverage. He had a leukocytosis that trended as follows. Laboratory Tests 10/19/16 10/20/16 10/21/16 23:17 04:13 06:52 WBC 16.6 H 23.2 H D 13.1 H D Part of this I believe was stress reaction from the DKA, but some of it was from the infection itself. He had no other source of infection except the thrush that presented orally. Due to his DKA he was place on our DKA protocol, receiving fluid resuscitation which did lead to a slight hypokalemia to 3.0 (despite KCL in IVF) was given additional KCL riders but was still 3.2 (but stable enough for discharge) on DOD. His sugars trended down nicely on insulin drip and he was then transitioned to basal 24 units of lantus and 6 units of lispro AC/HS dosing along with low dose SSI. His sugars were in the 70's - low 100's at time of discharge and pt. was back to eating meals without N/V. Procedures Performed: none Discharge Disposition: Home self care Disposition: Home self-care Condition: Good Discharge Activity: Activity as tolerated Discharge Diet: Consistent carbs Referrals: Andi Nguyễn MD [[facility]] - (per him) Mitchell Peres MD [Primary Care Provider] - 10/27/16 (sooner if things worsen. I understand that pt. may not be able to afford the Rx being sent in for him. If this is the case he is to resume previous ear drops and augmentin, but let our office know what has happened. F/u sooner if sx worsen.) Additional Patient Instructions (free text): Follow up with Dr. Nguyễn in 1-2 weeks for follow up and hearing test. Prescriptions (Any new or edited meds): Cefuroxime Axetil [Ceftin] 500 mg PO Q12H #18 tablet Nystatin [Mycostatin 100 Mu/Ml Suspension] 5 ml PO QID #280 ml Complete Home Medications List: Complete Home Medication List: Polyethylene Glycol 3350 [Miralax] 17 g PO PRN PRN 06/15/16 Pregabalin [Lyrica] 75 mg PO BID PRN 06/15/16 ALPRAZolam [Xanax] 1 mg PO TID PRN #0 tablet 06/17/16 HYDROcodone/ACETAMINOPHEN [[place] 5-325] 1 tab PO Q4H PRN #10 tab 10/14/16 FLUoxetine HCL [Prozac] 20 mg PO DAILY 10/20/16 Insulin Aspart [Novolog] 8 units SC TID 10/20/16 Insulin Glargine,Hum.rec.anlog [Lantus] 15 units SC BID 10/20/16 Naproxen [Naprosyn] 500 mg PO Q12H PRN 10/20/16 Ofloxacin [Floxin Otic] 10 drop LEFT EAR BID 10/20/16 Cefuroxime Axetil [Ceftin] 500 mg PO Q12H #18 tablet 10/22/16 Insulin Regular Human Rec [Novolin R] 100 units IV TITR PRN vial 10/22/16 Nystatin [Mycostatin 100 Mu/Ml Suspension] 5 ml PO QID #280 ml 10/22/16
[2016-10-22] MEDS: ENOXAPARIN SODIUM 40 MG/0.4 ML SYRG SC SCH (08:37)
[2016-10-22] MEDS: FLUoxetine HCL 20 MG CAPSULE PO SCH (08:38)
[2016-10-22] MEDS: NYSTATIN 60 ML BTL PO SCH ×2 (08:38→13:31)
[2016-10-22] MEDS: CEFUROXIME AXETIL 500 MG TABLET PO SCH (08:38)
[2016-10-22] MEDS: KETOROLAC TROMETHAMINE 15 MG/ML VIAL IV PRN (08:40)
[2016-10-22] MEDS: OFLOXACIN 50 DROP BTL LEFT EAR SCH (08:40)
[2016-10-22] MEDS: INSULIN GLARGINE,HUM.REC.ANLOG 100 UNITS/ML VIAL SC SCH (08:45)
[2016-10-22] MEDS: INSULIN ASPART 100 UNITS/ML VIAL SC SCH ×2 (08:47→13:30)
[2016-10-22 11:43] VITALS: BP 112/78
== END 2016-10-22 14:17 | disposition home or self-care (01) | DRG 638 ==
LOC: ER 22:19 → SCU 10-20 02:44 → MS 10-21 12:53
PROVIDERS: ADMIT Nurse Practitioner; ATTEND Family Medicine
PROC: 4A033R1 Measurement of Arterial Saturation, Peripheral, Percutaneous Approach (ICD-10-PCS; principal; 2016-10-19)
PROC: 03H Upper Arteries, Insertion (ICD-10-PCS; 2016-10-20)
DX: E10.10 Type 1 diabetes mellitus with ketoacidosis without coma (principal); N17.9 Acute kidney failure, unspecified; F33.9 Major depressive disorder, recurrent, unspecified; B37.0 Candidal stomatitis; E86.0 Dehydration; H60.502 Unspecified acute noninfective otitis externa, left ear; H72.92 Unspecified perforation of tympanic membrane, left ear; H92.12 Otorrhea, left ear; E87.6 Hypokalemia; D72.829 Elevated white blood cell count, unspecified; E10.42 Type 1 diabetes mellitus with diabetic polyneuropathy; F17.210 Nicotine dependence, cigarettes, uncomplicated; Z79.4 Long term (current) use of insulin
CPT/HCPCS: 36415; 36600; 80048; 80053; 80307; 81001; 82009; 82803; 83735; 84100; 85007; 85025; 87040; 87070; 87077; 87186; 96374; 96375; 99285; J2405

== ENCOUNTER 2018-11-24 12:39 | Inpatient (IN) ==
[2018-11-24] MEDS ORDERED: INSULIN REGULAR, HUMAN 100 UNITS/ML VIAL IV ONE ×2 (12:52→14:00)
[2018-11-24] MEDS ORDERED: NORMAL SALINE 1,000 ML IV PRN ×3 (12:52→14:29)
--- NOTE | 2018-11-24 12:54 | ERNOTE ---
Medical Problem HPI - Narrative Date of Service: 11/24/18 - General Chief Complaint: Diabetes Related Problem Time Seen by Provider: 11/24/18 12:50 Source: patient, family Exam Limitations: no limitations - Immun/Allergies/Home Medications Immunizations: IMMUNIZATION HX Immunizations Up to Date Yes History of Influenza Vaccine Yes Hx Pneumococcal Vaccination No Allergies/Adverse Reactions: Allergies Penicillins Allergy (Intermediate, Verified 11/13/18 09:11) Hives gabapentin Adverse Reaction (Intermediate, Verified 11/13/18 09:11) difficulty voiding Home Medications: HOME MEDICATIONS Insulin Glargine,Hum.rec.anlog [Lantus] 15 units SC BID 10/20/16 [Last Taken Unknown] Insulin Regular Human Rec [Novolin R] 100 units IV TITR PRN vial 10/22/16 [Last Taken Unknown] insulin aspart U-100 100 unit/mL subcutaneous solution 8 unit SUBCUT TID #30 ml 05/15/18 [Last Taken Unknown] insulin syringes (disposable) 1 mL See Dose Instructions .ROUTE .MEDSUPPLY #500 ea 07/16/18 [Last Taken Unknown] blood sugar diagnostic strips See Dose Instructions .ROUTE .MEDSUPPLY #100 ea 08/16/18 [Last Taken Unknown] alprazolam 1 mg tablet 1 mg PO TID PRN #90 tab 09/11/18 [Last Taken Unknown] oxcarbazepine 600 mg tablet 1,200 mg PO BID #120 tab 09/11/18 [Last Taken Unknown] insulin glargine (U-100) 100 unit/mL subcutaneous solution 15 unit SUB-Q BID #10 ml 10/22/18 [Last Taken Unknown] brexpiprazole 2 mg tablet 2 mg PO DAILY #30 tab 11/13/18 [Last Taken Unknown] hydrocodone 10 mg-acetaminophen 325 mg tablet 1 tab PO Q6H #120 tab 11/19/18 [Last Taken Unknown] naloxone 4 mg/actuation nasal spray 4 mg EFREN Q2-3M PRN #2 ea 11/19/18 [Last Taken Unknown] Trazodone HCl PO HS 11/24/18 [Last Taken Unknown] - Pain Score Pain Score #1 Pain Score: 0 - History of Present History Narrative: The patient is a 37 year old male who presents for vomiting and diarrhea which has been present since yesterday. There are associated symptoms of fatigue. The patient denies pain. There are no alleviating factors. There are no aggravating factors. Previous treatments have included: none. The past medical history includes: neuropathy, anxiety, DM, depression and PTSD. The social history is positive for daily tobacco use. The patient has had no known ill contacts. Patient reports last blood sugar check was yesterday and does not recall the level. Patient also reports last dose of insulin being yesterday. Patient states he began feeling unwell yesterday with several episode of v omiting and diarrhea. Review of Systems - Review of Systems Constitutional: Present: fatigue. Absent: fever EYE: Present: no symptoms reported ENT: Present: no symptoms reported. Absent: ear pain, nasal drainage, sore throat Respiratory: Present: cough. Absent: shortness of breath Cardiology: Present: no symptoms reported. Absent: chest pain Gastrointestinal/Abdominal: Present: nausea, vomiting, diarrhea, abdominal pain Genitourinary: Present: no symptoms reported. Absent: frequency, dysuria Musculoskeletal: Present: no symptoms reported Skin: Present: no symptoms reported. Absent: rash Neurological: Present: weakness All Other Systems: All systems neg except as marked Medical History (Updated 11/13/18 @ 09:19 by Vashti Shaw [facility]) Diabetes (Chronic) Diabetic neuropathy (Chronic) Major depressive disorder (Chronic) Muscle spasm (Chronic) Myalgia and myositis (Acute) Peripheral neuropathy (Acute) Onset Date: ~10/2014 Phantom pain (Acute) Onset Date: ~08/2016 PTSD (post-traumatic stress disorder) (Acute) Onset Date: ~04/2013 Tobacco abuse (Acute) Onset Date: ~02/2013 Vitamin D deficiency (Acute) Onset Date: ~02/2013 Received influenza vaccination at hospital (Acute) Onset Date: ~02/2018 Testicular pain, right (Acute) Testicular pain, left (Acute) Testicle pain (Acute) Diabetes mellitus with circulatory complication, with long-term current use of insulin (Chronic) Type I diabetes mellitus, uncontrolled (Acute) Cellulitis of second toe of right foot (Acute) Mastitis in male (Acute) Right 9 oclock Localized superficial swelling, mass, or lump (Acute) Urinary retention (Acute) Tobacco abuse (Chronic) 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) Non compliance w medication regimen (Acute) Insomnia due to mental disorder (Chronic) Generalized anxiety disorder (Chronic) Bipolar affective disorder, current episode depressed (Acute) Surgical History: Surgical History (Updated 11/12/18 @ 13:08 by Vee Cotton LPN) Finger amputation, no complication (Acute) History of ear surgery (Acute) Wrist fracture (Acute) Hand fracture (Acute) Subclavian artery laceration secondary to line placement (Acute) Hip fracture (Acute) Right Encounter for incision and drainage procedure (Acute) Onset Date: ~10/2016 insertion of subclavian catheter (Acute) Onset Date: ~04/2011 History of tympanoplasty of left ear (Acute) Onset Date: ~10/2016 Family History: Family History (Updated 03/13/18 @ 11:45 by Santiago Mar LPN) Mother Diabetes Other No significant family history Social History: (Last Reviewed 11/24/18 @ 13:02 by GLORIA Subramanian) Social History: adopted: No retirement: No Marital status: Single lives independently: Yes household members: family, other number of children: 4 current occupational status: disabled Highest education level completed: high school graduate Service: No Tobacco: Smoking Status: Current every day smoker tobacco type: cigarettes Smoking cigarettes per day: 20.0 Smoking packs per day: 1 Alcohol: alcohol intake: current alcohol intake frequency: holiday/special occasion Substance Use: substance use type: marijuana Dietary Habits: caffeine: Yes Type: carbonated beverages, coffee, tea Physical Exam - Physical Exam General Appearance: Present: wd/wn, mild distress, lethargic Head Exam: Present: normal inspection Eye Exam: Normal inspection: bilateral Respiratory: Present: no respiratory distress, normal breath sounds, no accessory muscle use, lungs clear Cardiovascular/Chest: Present: no murmur, tachycardia Gastrointestinal/Abdominal: Present: nondistended, soft, no organomegaly, tenderness - diffuse with palpation, abnormal bowel sounds - hyperactive throughout Extremity Exam: Present: no edema Neurological Exam: Present: alert, oriented, normal mood/affect, no motor/sensory deficits. Absent: disoriented to person, disoriented to time, disoriented to place, disoriented to situation Skin Exam: Present: warm/dry, pallor Progress - Date and Time Seen: Date and Time: 11/24/18 14:15 Patient with elevated K will administer calcium gluconate and albuterol along with repeat to IV insulin as well as for continued hyperglycemia. Patient remains lethargic but awakens with verbal stimulation. Will initiate antibiotics for coverage for underlying infection while awaiting testing results. 11/24/18 14:22 Case discussed with . reviewed lab results and accepts for admission to SCU. 11/24/18 15:41 Patient becoming more alert with spontaneous eye opening and awakens with less stimulation. Remains oriented x3. Patient admitted to SCU for continued treatment and monitoring. Repeat labs obtained and awaiting results. - Results and Orders Patient's Lab Results:: I have reviewed the patient's lab results. - Vital Signs Patient's Vital Signs:: I have reviewed the patient's vital signs. Vital Signs: Vital Signs 11/24/18 12:39 Temperature 36.6 C Pulse Rate 134 H Respiratory Rate 21 H Blood Pressure 100/62 O2 Sat by Pulse Oximetry 99 - EKG EKG #1 EKG: NSR - tachycardia, rate 136 EKG read: Reviewed by me - X-Ray X-Ray #1 X-Ray: chest Interpretation: Reviewed by me X-ray Comments: IMPRESSION: NORMAL CHEST. Electronically signed by Sawyer Del Toro D.O.. X-Ray #2 X-Ray: abdomen Interpretation: Reviewed by me X-ray Comments: IMPRESSION: MULTIPLE AIR DISTENDED AND BORDERLINE DILATED LOOPS OF SMALL BOWEL SUGGESTIVE OF VIRAL ENTERITIS. Electronically signed by Sawyer Del Toro D.O.. - Progress/Reassessment Chief Complaint: Diabetes Related Problem Departure Clinical Impression: DKA (diabetic ketoacidosis) Qualifiers: Diabetes mellitus type: type 1 Diabetes mellitus complication detail: without coma Qualified Code(s): E10.10 - Type 1 diabetes mellitus with ketoacidosis without coma - Departure Disposition: Still a patient Condition: Stable
[2018-11-24 13:29] LABS: Hematocrit 48.6 % (42.0-52.0); Hemoglobin 15.1 gm/dL (13.5-18.0); Mean Corpuscular Hemoglobin 32.6 pg (27-31); Mean Corpuscular Hgb Conc 31.1 g/dl (32-36); Mean Platelet Volume 11.2 fl (8-11.3); Platelet Count 348 K/mm3 (150-450); Red Blood Count 4.63 M/mm3 (4.7-6.0); Red Cell Distribution Width 13.3 % (11.5-14.0); White Blood Count 22.5 K/mm3 (4.0-10.5)
[2018-11-24 13:30] LABS: Total Cells Counted 100
[2018-11-24 13:42] LABS: ALT 31 U/L (19-67); AST 22 U/L (0-48); Albumin * 4.5 gm/dl (3.4-5.0); Alkaline Phosphatase * 132 U/L (50-170); Amylase * 97 U/L (25-115); Anion Gap 41.5 mmol/L (6.8-13.8); BUN/Creatinine Ratio 14.3 (9.0-21.6); Bilirubin, Total 0.5 mg/dL (0.0-1.1); Blood Urea Nitrogen 47 mg/dL (6-23); Ca. Corrected For Albumin 8.7 mg/dL (8.4-10.2); Calcium * 9.4 mg/dL (7.9-10.9); Carbon Dioxide 6.8 mmol/L (24-32.6); Chloride 93 mmol/L (97-106); Lipase 419 U/L (73-393); Potassium 6.3 mmol/L (3.4-4.6); Sodium 135 mmol/L (132-142); Total Protein 8.2 gm/dL (6.2-8.2)
[2018-11-24] MEDS ORDERED: NORMAL SALINE 1,000 ML IV ONE ×4 (13:48→22:01)
[2018-11-24 13:55] LABS: Glucose * 1163 mg/dL (70-110)
[2018-11-24] MEDS ORDERED: ALBUTEROL SULFATE 2.5 MG/0.5 ML VIAL.NEB IH ONE ×2 (13:59→14:21)
[2018-11-24] MEDS ORDERED: INSULIN REGULAR, HUMAN 100 UNITS in NORMAL SALINE 100 ML IV PRN ×2 (14:00)
[2018-11-24] MEDS ORDERED: CALCIUM GLUCONATE 4.65 MEQ/10 ML VIAL IV ONE (14:00)
[2018-11-24] MEDS ORDERED: cefTRIAXone SODIUM 1,000 MG/100 ML BAG IV ONE (14:08)
[2018-11-24 14:11] LABS: Band 2 % (0-2.0); Lymphocyte 9 % (20-51); Monocyte 4 % (0-9); Neutrophil 85 % (42-75); Neutrophil # 19.1 K/mm3 (1.3-6.0)
[2018-11-24 14:12] LABS: Platelet Estimate Normal (NORMAL); RBC Morphology Normal (NORMAL)
[2018-11-24 15:55] LABS: Anion Gap 33.2 mmol/L (6.8-13.8); BUN/Creatinine Ratio 17.1 (9.0-21.6); Calcium * 8.6 mg/dL (7.9-10.9); Carbon Dioxide 8.2 mmol/L (24-32.6); Estimated Creat Clear 40.3; Potassium 3.4 mmol/L (3.4-4.6)
[2018-11-24] MEDS ORDERED: POTASSIUM CHLORIDE 20 MEQ TABLET.SA PO ONE ×2 (16:30→17:17)
[2018-11-24 16:54] LABS: Urine Appearance Clear (CLEAR); Urine Bilirubin Negative (NEGATIVE); Urine Color Yellow; Urine Ketone Large mg/dL (NEGATIVE)
[2018-11-24 16:55] LABS: Urine Blood 50 /ul (NEGATIVE); Urine Nitrite Negative (NEGATIVE); Urine Protein 15 mg/dL (NEGATIVE); Urine Urobilinogen Normal (NORMAL); Urine pH 5.5 pH (5.0-7.0)
[2018-11-24 16:56] LABS: Urine RBC 0-5 /hpf (0-5); Urine WBC 0-5 /hpf (0-5)
[2018-11-24 16:57] LABS: Urine Bacteria None Seen
[2018-11-24] MEDS: POTASSIUM CHLORIDE IN WATER 100 ML IV SCH ×4 (17:08→20:15)
--- NOTE | 2018-11-24 17:44 | HP ---
Chief Complaint - Chief Complaint Date of Service: 11/24/18 Time of Service: 17:26 Chief Complaint: vomiting, diarrhea History of Present Illness: Patient with past medical history of type 1 diabetes diagnosed at age 15 presented to the ED after a day of nausea, vomiting, and diarrhea. He was chilling and felt warm at the same time, but his temperature was not taken. Denies other symptoms of infection, and denies sick contacts. He had not been eating, so he has not been giving himself his insulin. He is found to be in DKA with ketones, pH of 7.14, anion gap of 41.5, CO2 of 8.2. He was given 10 units regular insulin, started on an insulin drip, and given four 1 L boluses of normal saline in the ED. at the time of my exam, he is somewhat sleepy, but able to answer all questions. He is tachycardic, but the remainder of his vitals are within normal limits. He was in DKA a couple years ago when he had an ear infection. Medical History (Updated 11/24/18 @ 15:42 by GLORIA Subramanian) Diabetes (Chronic) Diabetic neuropathy (Chronic) Major depressive disorder (Chronic) Muscle spasm (Chronic) Myalgia and myositis (Acute) Peripheral neuropathy (Acute) Onset Date: ~10/2014 Phantom pain (Acute) Onset Date: ~08/2016 PTSD (post-traumatic stress disorder) (Acute) Onset Date: ~04/2013 Tobacco abuse (Acute) Onset Date: ~02/2013 Vitamin D deficiency (Acute) Onset Date: ~02/2013 Received influenza vaccination at hospital (Acute) Onset Date: ~02/2018 Testicular pain, right (Acute) Testicular pain, left (Acute) Testicle pain (Acute) Diabetes mellitus with circulatory complication, with long-term current use of insulin (Chronic) Type I diabetes mellitus, uncontrolled (Acute) Cellulitis of second toe of right foot (Acute) Mastitis in male (Acute) Right 9 oclock Localized superficial swelling, mass, or lump (Acute) Urinary retention (Acute) Tobacco abuse (Chronic) 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) Non compliance w medication regimen (Acute) Insomnia due to mental disorder (Chronic) Generalized anxiety disorder (Chronic) Bipolar affective disorder, current episode depressed (Acute) Surgical History: Surgical History (Updated 11/12/18 @ 13:08 by Vee Cotton LPN) Finger amputation, no complication (Acute) History of ear surgery (Acute) Wrist fracture (Acute) Hand fracture (Acute) Subclavian artery laceration secondary to line placement (Acute) Hip fracture (Acute) Right Encounter for incision and drainage procedure (Acute) Onset Date: ~10/2016 insertion of subclavian catheter (Acute) Onset Date: ~04/2011 History of tympanoplasty of left ear (Acute) Onset Date: ~10/2016 Family History: Family History (Updated 03/13/18 @ 11:45 by Santiago Mar LPN) Mother Diabetes Other No significant family history Social History: (Last Reviewed 11/24/18 @ 16:21 by Jarek Regan RN) Social History: adopted: No mcc: No Marital status: Single lives independently: Yes household members: family, other number of children: 4 current occupational status: disabled Highest education level completed: high school graduate Service: No Tobacco: Smoking Status: Current every day smoker tobacco type: cigarettes Smoking cigarettes per day: 20.0 Smoking packs per day: 1 Alcohol: alcohol intake: current alcohol intake frequency: holiday/special occasion Substance Use: substance use type: marijuana Dietary Habits: caffeine: Yes Type: carbonated beverages, coffee, tea Review Of Systems (GEN) - Review of Systems Generalized/Overall Review: Present: Chills. Absent: Weight loss EENTM: Absent: Throat Pain Respiratory: Absent: Cough, Shortness of Breath Cardiac: Absent: Chest Pain, Edema Abdominal: Present: Nausea, Vomiting, Diarrhea Genitourinary: Present: No Symptoms Reported Musculoskeletal: Present: No Symptoms Reported Neurological: Present: Numbness Skin: Present: No Symptoms Reported Immunizations: IMMUNIZATION HX Immunizations Up to Date Yes History of Influenza Vaccine Yes Hx Pneumococcal Vaccination No Allergies/Adverse Reactions: Allergies Allergy/AdvReac Type Severity Reaction Status Date / Time Penicillins Allergy Intermediate Hives Verified 11/13/18 09:11 gabapentin AdvReac Intermediate difficulty Verified 11/13/18 09:11 voiding Home Medications: HOME MEDICATIONS RX: Insulin Glargine,Hum.rec.anlog [Lantus] 15 units SC BID 10/20/16 [Last Taken Unknown] insulin aspart U-100 100 unit/mL subcutaneous solution 8 unit SUBCUT TID #30 ml 05/15/18 [Last Taken Unknown] insulin syringes (disposable) 1 mL See Dose Instructions .ROUTE .MEDSUPPLY #500 ea 07/16/18 [Last Taken Unknown] blood sugar diagnostic strips See Dose Instructions .ROUTE .MEDSUPPLY #100 ea 08/16/18 [Last Taken Unknown] alprazolam 1 mg tablet 1 mg PO TID PRN #90 tab 09/11/18 [Last Taken Unknown] oxcarbazepine 600 mg tablet 1,200 mg PO BID #120 tab 09/11/18 [Last Taken Unknown] insulin glargine (U-100) 100 unit/mL subcutaneous solution 15 unit SUB-Q BID #10 ml 10/22/18 [Last Taken Unknown] brexpiprazole 2 mg tablet 2 mg PO DAILY #30 tab 11/13/18 [Last Taken Unknown] hydrocodone 10 mg-acetaminophen 325 mg tablet 1 tab PO Q6H #120 tab 11/19/18 [Last Taken Unknown] naloxone 4 mg/actuation nasal spray 4 mg EFREN Q2-3M PRN #2 ea 11/19/18 [Last Taken Unknown] QUEtiapine FUMARATE [Seroquel] 300 mg PO HS 11/24/18 [Last Taken Unknown] traZODone HCL [Trazodone HCl] 100 mg PO HS 11/24/18 [Last Taken Unknown] Exam - Exam Vital Signs: Vital Signs - Last Taken Temp 36.7 C 11/24/18 16:07 Pulse 127 H 11/24/18 16:07 Resp 18 11/24/18 16:07 BP 121/70 11/24/18 16:07 Pulse Ox 100 11/24/18 16:07 Constitutional: Present: No distress, Looks Older than stated age ENT Exam: Present: dry mucous membranes Respiratory: Present: normal breath sounds, no respiratory distress Cardiovascular/Chest: Present: tachycardia - HR 129 Abdomen: Present: nontender, other - Scaphoid Extremity: Absent: lower extremity edema Appearance: Present: disheveled Diagnostic Studies: Abnormal Lab Results 11/24/18 11/24/18 11/24/18 Range/Units 13:20 13:20 13:20 WBC 22.5 H (4.0-10.5) K/mm3 RBC 4.63 L (4.7-6.0) M/mm3 MCV 105.0 H (78-100) fl MCH 32.6 H (27-31) pg MCHC 31.1 L (32-36) g/dl Neutrophils % (Manual) 85 H (42-75) % Lymphocytes % (Manual) 9 L (20-51) % Neutrophils # (Manual) 19.1 H (1.3-6.0) K/mm3 pCO2 (35.0-48.0) mmHg pO2 (83.0-108.0) mmHg HCO3 (21.0-28.0) mmol/L Total CO2 (19.0-24.0) mmol/L Base Excess (-2.0-3.0) mmol/L ABG pH (7.35-7.45) VBG pH 7.104 L* (7.32-7.43) Sodium (132-142) mmol/L Plasma Sodium 152 H (130-142) mmol/L Potassium 6.3 H (3.4-4.6) mmol/L Chloride 93 L (97-106) mmol/L Carbon Dioxide 6.8 L (24-32.6) mmol/L Anion Gap 41.5 H (6.8-13.8) mmol/L BUN 47 H (6-23) mg/dL Creatinine 3.29 H (0.4-1.4) mg/dL Est GFR (Non-Af Amer) 22 L D (60-130) mL/min Random Glucose 1163 H (70-110) mg/dL Lipase 419 H (73-393) U/L Urine Protein (NEGATIVE) mg/dL Urine Glucose (UA) (NEGATIVE) mg/dL Urine Blood (NEGATIVE) /ul Serum Ketones Positive - 80mg/dl H (NEGATIVE) 11/24/18 11/24/18 11/24/18 Range/Units 14:14 15:37 16:12 WBC (4.0-10.5) K/mm3 RBC (4.7-6.0) M/mm3 MCV (78-100) fl MCH (27-31) pg MCHC (32-36) g/dl Neutrophils % (Manual) (42-75) % Lymphocytes % (Manual) (20-51) % Neutrophils # (Manual) (1.3-6.0) K/mm3 pCO2 Less than 14.9 L* (35.0-48.0) mmHg pO2 125.8 H (83.0-108.0) mmHg HCO3 4.7 L (21.0-28.0) mmol/L Total CO2 5.1 L (19.0-24.0) mmol/L Base Excess -21.9 L (-2.0-3.0) mmol/L ABG pH 7.14 L* (7.35-7.45) VBG pH (7.32-7.43) Sodium 147 H (132-142) mmol/L Plasma Sodium 157 H (130-142) mmol/L Potassium (3.4-4.6) mmol/L Chloride 109 H (97-106) mmol/L Carbon Dioxide 8.2 L (24-32.6) mmol/L Anion Gap 33.2 H (6.8-13.8) mmol/L BUN 48 H (6-23) mg/dL Creatinine 2.81 H D (0.4-1.4) mg/dL Est GFR (Non-Af Amer) 27 L D (60-130) mL/min Random Glucose 734 H D (70-110) mg/dL Lipase (73-393) U/L Urine Protein 15 H (NEGATIVE) mg/dL Urine Glucose (UA) >=1000 H (NEGATIVE) mg/dL Urine Blood 50 H (NEGATIVE) /ul Serum Ketones (NEGATIVE) Laboratory Results WBC 22.5 K/mm3 (4.0-10.5) H 11/24/18 13:20 RBC 4.63 M/mm3 (4.7-6.0) L 11/24/18 13:20 Hgb 15.1 gm/dL (13.5-18.0) 11/24/18 13:20 Hct 48.6 % (42.0-52.0) 11/24/18 13:20 MCV 105.0 fl (78-100) H 11/24/18 13:20 MCH 32.6 pg (27-31) H 11/24/18 13:20 MCHC 31.1 g/dl (32-36) L 11/24/18 13:20 RDW 13.3 % (11.5-14.0) 11/24/18 13:20 Plt Count 348 K/mm3 (150-450) 11/24/18 13:20 MPV 11.2 fl (8-11.3) 11/24/18 13:20 85 % (42-75) H 11/24/18 13:20 Band Neuts % (Manual) 2 % (0-2.0) 11/24/18 13:20 9 % (20-51) L 11/24/18 13:20 4 % (0-9) 11/24/18 13:20 19.1 K/mm3 (1.3-6.0) H 11/24/18 13:20 2.0 k/mm3 (1.5-3.5) 11/24/18 13:20 0.9 k/mm3 (0.0-1.0) 11/24/18 13:20 Normal (NORMAL) 11/24/18 13:20 RBC Morphology Normal (NORMAL) 11/24/18 13:20 pCO2 Less than 14.9 mmHg (35.0-48.0) L* 11/24/18 14:14 pO2 125.8 mmHg (83.0-108.0) H 11/24/18 14:14 HCO3 4.7 mmol/L (21.0-28.0) L 11/24/18 14:14 Total CO2 5.1 mmol/L (19.0-24.0) L 11/24/18 14:14 Base Excess -21.9 mmol/L (-2.0-3.0) L 11/24/18 14:14 ABG pH 7.14 (7.35-7.45) L* 11/24/18 14:14 ABG O2 Sat (Measured) 97.6 % (94.0-98.0) 11/24/18 14:14 VBG pH 7.104 (7.32-7.43) L* 11/24/18 13:20 Sodium 147 mmol/L (132-142) H 11/24/18 15:37 157 mmol/L (130-142) H 11/24/18 15:37 Potassium 3.4 mmol/L (3.4-4.6) D 11/24/18 15:37 Chloride 109 mmol/L (97-106) H 11/24/18 15:37 Carbon Dioxide 8.2 mmol/L (24-32.6) L 11/24/18 15:37 33.2 mmol/L (6.8-13.8) H 11/24/18 15:37 BUN 48 mg/dL (6-23) H 11/24/18 15:37 2.81 mg/dL (0.4-1.4) H D 11/24/18 15:37 Est GFR (Non-Af Amer) 27 mL/min (60-130) L D 11/24/18 15:37 17.1 (9.0-21.6) 11/24/18 15:37 734 mg/dL (70-110) H D 11/24/18 15:37 Calcium 8.6 mg/dL (7.9-10.9) 11/24/18 15:37 Calcium Adj for Albumin 8.7 mg/dL (8.4-10.2) 11/24/18 13:20 0.5 mg/dL (0.0-1.1) 11/24/18 13:20 AST 22 U/L (0-48) 11/24/18 13:20 ALT 31 U/L (19-67) 11/24/18 13:20 132 U/L (50-170) 11/24/18 13:20 Less than 0.017 ng/mL (0.00-0.10) 11/24/18 13:20 8.2 gm/dL (6.2-8.2) 11/24/18 13:20 4.5 gm/dl (3.4-5.0) 11/24/18 13:20 Amylase 97 U/L (25-115) 11/24/18 13:20 419 U/L (73-393) H 11/24/18 13:20 Yellow 11/24/18 16:12 Clear (CLEAR) 11/24/18 16:12 5.5 pH (5.0-7.0) 11/24/18 16:12 Ur Specific Mullens 1.010 SP.GR. (1.005-1.030) 11/24/18 16:12 15 mg/dL (NEGATIVE) H 11/24/18 16:12 >=1000 mg/dL (NEGATIVE) H 11/24/18 16:12 Large mg/dL (NEGATIVE) 11/24/18 16:12 50 /ul (NEGATIVE) H 11/24/18 16:12 Negative (NEGATIVE) 11/24/18 16:12 Negative mg/dl (NEGATIVE) 11/24/18 16:12 Prot Sulfosalicylic Acd 1+ mg/dL (0) 11/24/18 16:12 Normal EU/dl (NORMAL) 11/24/18 16:12 Ur Leukocyte Esterase Negative /ul (NEGATIVE) 11/24/18 16:12 0-5 /hpf (0-5) 11/24/18 16:12 0-5 /hpf (0-5) 11/24/18 16:12 Ur Epithelial Cells 0-5 /hpf (0-5) 11/24/18 16:12 None seen (NONE) 11/24/18 16:12 No culture indicated 11/24/18 16:12 Positive - 80mg/dl (NEGATIVE) H 11/24/18 13:20 Assessment/Plan - Assessment/Plan (1) DKA (diabetic ketoacidosis) Assessment: Thus far, he is received for 1 L boluses of normal saline. He reports starting to feel better. We will continue normal saline at 250 cc/hr, and continue the insulin drip at this time. The insulin drip is currently going at 5.9 units/hr. His blood glucose is still greater than 500. His anion gap has improved from 41.5 to 33.2, and his CO2 has improved from 6.8 to 8.2. His potassium has decreased from 6.3-3.5. Potassium riders IV have been started, and will also administer 40 mEq of p.o. potassium. We will continue every 2 hour BMPs at this time, alternating with every 2 hour glucose checks. Will remain n.p.o. for now, but will let him have ice chips. We will start a diet and we are able to transition back to home insulin. He reports giving himself 18 units of Lantus daily, and 8 units of Humalog with meals. Likely secondary to viral gastroenteritis, decreased p.o. intake, and insufficient insulin. I do not see signs of infection right now, however we did give him 1 dose of Rocephin in the ED. Will reassess in the morning to see if antibiotics need to be continued. He did have an elevated white count of 22.5, but that could be secondary to the DKA. Problem: Acute Qualifiers: Diabetes mellitus type: type 1 Diabetes mellitus complication detail: without coma Qualified Code(s): E10.10 - Type 1 diabetes mellitus with ketoacidosis without coma (2) Insomnia due to mental disorder Problem: Chronic (3) Generalized anxiety disorder Problem: Chronic (4) Bipolar affective disorder, current episode depressed Assessment: Will continue home meds Problem: Chronic Qualifiers:
[2018-11-24 17:48] LABS: Anion Gap 27.7 mmol/L (6.8-13.8); BUN/Creatinine Ratio 17.8 (9.0-21.6); Calcium * 8.3 mg/dL (7.9-10.9); Carbon Dioxide 12.1 mmol/L (24-32.6); Potassium 3.8 mmol/L (3.4-4.6)
[2018-11-24] MEDS ORDERED: ALPRAZolam 1 MG TABLET PO PRN (17:57)
[2018-11-24] MEDS ORDERED: POTASSIUM CHLORIDE 10 MEQ TABLET.SA PO ONE (19:00)
[2018-11-24 19:53] LABS: Anion Gap 21.6 mmol/L (6.8-13.8); BUN/Creatinine Ratio 18.8 (9.0-21.6); Calcium * 8.2 mg/dL (7.9-10.9); Carbon Dioxide 13.8 mmol/L (24-32.6); Estimated Creat Clear 55.8; Potassium 4.4 mmol/L (3.4-4.6)
[2018-11-24] MEDS: QUEtiapine FUMARATE 100 MG TABLET PO SCH (21:09)
[2018-11-24] MEDS: OXcarbazepine 300 MG TABLET PO SCH (21:10)
[2018-11-24 21:56] LABS: Anion Gap 16.5 mmol/L (6.8-13.8); Calcium * 7.7 mg/dL (7.9-10.9); Carbon Dioxide 19.9 mmol/L (24-32.6); Estimated Creat Clear 62.6; Potassium 4.4 mmol/L (3.4-4.6)
[2018-11-24] MEDS: NORMAL SALINE 1,000 ML IV PRN (23:13)
[2018-11-24] MEDS: DEXTROSE 5%-0.5 NORMAL SALINE 1,000 ML IV PRN (23:13)
[2018-11-24 23:49] LABS: Anion Gap 16.5 mmol/L (6.8-13.8); BUN/Creatinine Ratio 21.1 (9.0-21.6); Calcium * 7.6 mg/dL (7.9-10.9); Carbon Dioxide 17.8 mmol/L (24-32.6); Potassium 4.3 mmol/L (3.4-4.6)
[2018-11-25 03:53] LABS: Anion Gap 15.6 mmol/L (6.8-13.8); Calcium * 7.7 mg/dL (7.9-10.9); Carbon Dioxide 19.7 mmol/L (24-32.6); Estimated Creat Clear 78.8; Potassium 4.3 mmol/L (3.4-4.6)
[2018-11-25] MEDS: DEXTROSE 5%-0.5 NORMAL SALINE 1,000 ML IV PRN ×3 (06:56→22:50)
[2018-11-25 07:37] LABS: Hematocrit 33.2 % (42.0-52.0); Hemoglobin 11.3 gm/dL (13.5-18.0); Mean Cell Volume 95.4 fl (78-100); Mean Corpuscular Hemoglobin 32.5 pg (27-31); Mean Platelet Volume 9.6 fl (8-11.3); Neutrophil # 11.9 K/mm3 (1.3-6.0); Neutrophil % 79.3 % (42-75.0); Platelet Count 221 K/mm3 (150-450); Red Blood Count 3.48 M/mm3 (4.7-6.0); Red Cell Distribution Width 13.3 % (11.5-14.0)
[2018-11-25 07:45] LABS: Anion Gap 14.4 mmol/L (6.8-13.8); BUN/Creatinine Ratio 20.9 (9.0-21.6); Calcium * 7.6 mg/dL (7.9-10.9); Carbon Dioxide 20.4 mmol/L (24-32.6); Estimated Creat Clear 87.3; Potassium 3.8 mmol/L (3.4-4.6)
[2018-11-25] MEDS: NORMAL SALINE 1,000 ML IV PRN (08:07)
[2018-11-25] MEDS: OXcarbazepine 300 MG TABLET PO SCH ×2 (09:06→20:20)
--- NOTE | 2018-11-25 10:44 | PN ---
Subjective - Date and Time Seen Date: 11/25/18 Time: 10:43 Subjective Narrative: Patient reports feeling better than yesterday, almost back to his baseline. He was having low blood pressure overnight, requiring 2 extra 1 L boluses of normal saline. Not much urine output yet. Still no signs of active infection. No continued vomiting. He does state he does not eat much at baseline. Objective - Review of Systems Generalized/Overall Review: Denies: Fever Respiratory: Denies: Cough Cardiac: Denies: Edema Abdominal: Denies: Vomiting Genitourinary Symptoms: Reports: No Symptoms Reported Musculoskeletal Complaints: Reports: No Symptoms Reported - Vitals Vitals: Last Vital Signs Temp 37.2 C 11/25/18 08:16 Pulse 102 H 11/25/18 10:00 Resp 16 11/25/18 09:06 BP 105/59 11/25/18 09:06 Pulse Ox 100 11/25/18 09:06 - Abnormal Lab Findings Abnormal Lab Findings: Abnormal Lab Results 11/24/18 11/24/18 11/24/18 Range/Units 13:20 13:20 13:20 WBC 22.5 H (4.0-10.5) K/mm3 RBC 4.63 L (4.7-6.0) M/mm3 Hgb (13.5-18.0) gm/dL Hct (42.0-52.0) % MCV 105.0 H (78-100) fl MCH 32.6 H (27-31) pg MCHC 31.1 L (32-36) g/dl Immature Gran % (Auto) (0.001-0.429) % Immature Gran # (Auto) (0.000-0.0310) K/mm3 Neutrophils % (42-75.0) % Neutrophils % (Manual) 85 H (42-75) % Lymphocytes % (20-51) % Lymphocytes % (Manual) 9 L (20-51) % Neutrophils # (1.3-6.0) K/mm3 Neutrophils # (Manual) 19.1 H (1.3-6.0) K/mm3 Monocytes # (0.0-1.0) k/mm3 pCO2 (35.0-48.0) mmHg pO2 (83.0-108.0) mmHg HCO3 (21.0-28.0) mmol/L Total CO2 (19.0-24.0) mmol/L Base Excess (-2.0-3.0) mmol/L ABG pH (7.35-7.45) VBG pH 7.104 L* (7.32-7.43) Sodium (132-142) mmol/L Plasma Sodium 152 H (130-142) mmol/L Potassium 6.3 H (3.4-4.6) mmol/L Chloride 93 L (97-106) mmol/L Carbon Dioxide 6.8 L (24-32.6) mmol/L Anion Gap 41.5 H (6.8-13.8) mmol/L BUN 47 H (6-23) mg/dL Creatinine 3.29 H (0.4-1.4) mg/dL Est GFR (Non-Af Amer) 22 L D (60-130) mL/min Random Glucose 1163 H (70-110) mg/dL Calcium (7.9-10.9) mg/dL Lipase 419 H (73-393) U/L Urine Protein (NEGATIVE) mg/dL Urine Glucose (UA) (NEGATIVE) mg/dL Urine Blood (NEGATIVE) /ul Serum Ketones Positive - 80mg/dl H (NEGATIVE) 11/24/18 11/24/18 11/24/18 Range/Units 14:14 15:37 16:12 WBC (4.0-10.5) K/mm3 RBC (4.7-6.0) M/mm3 Hgb (13.5-18.0) gm/dL Hct (42.0-52.0) % MCV (78-100) fl MCH (27-31) pg MCHC (32-36) g/dl Immature Gran % (Auto) (0.001-0.429) % Immature Gran # (Auto) (0.000-0.0310) K/mm3 Neutrophils % (42-75.0) % Neutrophils % (Manual) (42-75) % Lymphocytes % (20-51) % Lymphocytes % (Manual) (20-51) % Neutrophils # (1.3-6.0) K/mm3 Neutrophils # (Manual) (1.3-6.0) K/mm3 Monocytes # (0.0-1.0) k/mm3 pCO2 Less than 14.9 L* (35.0-48.0) mmHg pO2 125.8 H (83.0-108.0) mmHg HCO3 4.7 L (21.0-28.0) mmol/L Total CO2 5.1 L (19.0-24.0) mmol/L Base Excess -21.9 L (-2.0-3.0) mmol/L ABG pH 7.14 L* (7.35-7.45) VBG pH (7.32-7.43) Sodium 147 H (132-142) mmol/L Plasma Sodium 157 H (130-142) mmol/L Potassium (3.4-4.6) mmol/L Chloride 109 H (97-106) mmol/L Carbon Dioxide 8.2 L (24-32.6) mmol/L Anion Gap 33.2 H (6.8-13.8) mmol/L BUN 48 H (6-23) mg/dL Creatinine 2.81 H D (0.4-1.4) mg/dL Est GFR (Non-Af Amer) 27 L D (60-130) mL/min Random Glucose 734 H D (70-110) mg/dL Calcium (7.9-10.9) mg/dL Lipase (73-393) U/L Urine Protein 15 H (NEGATIVE) mg/dL Urine Glucose (UA) >=1000 H (NEGATIVE) mg/dL Urine Blood 50 H (NEGATIVE) /ul Serum Ketones (NEGATIVE) 11/24/18 11/24/18 11/24/18 Range/Units 17:36 19:40 21:35 WBC (4.0-10.5) K/mm3 RBC (4.7-6.0) M/mm3 Hgb (13.5-18.0) gm/dL Hct (42.0-52.0) % MCV (78-100) fl MCH (27-31) pg MCHC (32-36) g/dl Immature Gran % (Auto) (0.001-0.429) % Immature Gran # (Auto) (0.000-0.0310) K/mm3 Neutrophils % (42-75.0) % Neutrophils % (Manual) (42-75) % Lymphocytes % (20-51) % Lymphocytes % (Manual) (20-51) % Neutrophils # (1.3-6.0) K/mm3 Neutrophils # (Manual) (1.3-6.0) K/mm3 Monocytes # (0.0-1.0) k/mm3 pCO2 (35.0-48.0) mmHg pO2 (83.0-108.0) mmHg HCO3 (21.0-28.0) mmol/L Total CO2 (19.0-24.0) mmol/L Base Excess (-2.0-3.0) mmol/L ABG pH (7.35-7.45) VBG pH (7.32-7.43) Sodium 150 H 148 H 152 H (132-142) mmol/L Plasma Sodium 156 H 152 H 154 H (130-142) mmol/L Potassium (3.4-4.6) mmol/L Chloride 114 H 117 H 120 H (97-106) mmol/L Carbon Dioxide 12.1 L 13.8 L 19.9 L (24-32.6) mmol/L Anion Gap 27.7 H 21.6 H 16.5 H (6.8-13.8) mmol/L BUN 41 H 38 H 36 H (6-23) mg/dL Creatinine 2.30 H D 2.02 H 1.80 H (0.4-1.4) mg/dL Est GFR (Non-Af Amer) 34 L D 39 L 45 L (60-130) mL/min Random Glucose 465 H D 327 H 210 H D (70-110) mg/dL Calcium 7.7 L (7.9-10.9) mg/dL Lipase (73-393) U/L Urine Protein (NEGATIVE) mg/dL Urine Glucose (UA) (NEGATIVE) mg/dL Urine Blood (NEGATIVE) /ul Serum Ketones (NEGATIVE) 11/24/18 11/25/18 11/25/18 Range/Units 23:35 03:40 07:33 WBC (4.0-10.5) K/mm3 RBC (4.7-6.0) M/mm3 Hgb (13.5-18.0) gm/dL Hct (42.0-52.0) % MCV (78-100) fl MCH (27-31) pg MCHC (32-36) g/dl Immature Gran % (Auto) (0.001-0.429) % Immature Gran # (Auto) (0.000-0.0310) K/mm3 Neutrophils % (42-75.0) % Neutrophils % (Manual) (42-75) % Lymphocytes % (20-51) % Lymphocytes % (Manual) (20-51) % Neutrophils # (1.3-6.0) K/mm3 Neutrophils # (Manual) (1.3-6.0) K/mm3 Monocytes # (0.0-1.0) k/mm3 pCO2 (35.0-48.0) mmHg pO2 (83.0-108.0) mmHg HCO3 (21.0-28.0) mmol/L Total CO2 (19.0-24.0) mmol/L Base Excess (-2.0-3.0) mmol/L ABG pH (7.35-7.45) VBG pH (7.32-7.43) Sodium 153 H 154 H 153 H (132-142) mmol/L Plasma Sodium 153 H 154 H 153 H (130-142) mmol/L Potassium (3.4-4.6) mmol/L Chloride 123 H 123 H 122 H (97-106) mmol/L Carbon Dioxide 17.8 L 19.7 L 20.4 L (24-32.6) mmol/L Anion Gap 16.5 H 15.6 H 14.4 H (6.8-13.8) mmol/L BUN 34 H 30 H 27 H (6-23) mg/dL Creatinine 1.61 H 1.43 H (0.4-1.4) mg/dL Est GFR (Non-Af Amer) 51 L 59 L (60-130) mL/min Random Glucose 123 H D (70-110) mg/dL Calcium 7.6 L 7.7 L 7.6 L (7.9-10.9) mg/dL Lipase (73-393) U/L Urine Protein (NEGATIVE) mg/dL Urine Glucose (UA) (NEGATIVE) mg/dL Urine Blood (NEGATIVE) /ul Serum Ketones (NEGATIVE) 11/25/18 Range/Units 07:33 WBC 15.0 H D (4.0-10.5) K/mm3 RBC 3.48 L (4.7-6.0) M/mm3 Hgb 11.3 L (13.5-18.0) gm/dL Hct 33.2 L (42.0-52.0) % MCV (78-100) fl MCH 32.5 H (27-31) pg MCHC (32-36) g/dl Immature Gran % (Auto) 0.60 H (0.001-0.429) % Immature Gran # (Auto) 0.09 H (0.000-0.0310) K/mm3 Neutrophils % 79.3 H (42-75.0) % Neutrophils % (Manual) (42-75) % Lymphocytes % 11.1 L (20-51) % Lymphocytes % (Manual) (20-51) % Neutrophils # 11.9 H (1.3-6.0) K/mm3 Neutrophils # (Manual) (1.3-6.0) K/mm3 Monocytes # 1.3 H (0.0-1.0) k/mm3 pCO2 (35.0-48.0) mmHg pO2 (83.0-108.0) mmHg HCO3 (21.0-28.0) mmol/L Total CO2 (19.0-24.0) mmol/L Base Excess (-2.0-3.0) mmol/L ABG pH (7.35-7.45) VBG pH (7.32-7.43) Sodium (132-142) mmol/L Plasma Sodium (130-142) mmol/L Potassium (3.4-4.6) mmol/L Chloride (97-106) mmol/L Carbon Dioxide (24-32.6) mmol/L Anion Gap (6.8-13.8) mmol/L BUN (6-23) mg/dL Creatinine (0.4-1.4) mg/dL Est GFR (Non-Af Amer) (60-130) mL/min Random Glucose (70-110) mg/dL Calcium (7.9-10.9) mg/dL Lipase (73-393) U/L Urine Protein (NEGATIVE) mg/dL Urine Glucose (UA) (NEGATIVE) mg/dL Urine Blood (NEGATIVE) /ul Serum Ketones (NEGATIVE) - Exam Constitutional: Present: Alert, Cooperative, No distress, Looks Older than stated age Respiratory: Present: normal breath sounds, no respiratory distress Cardiovascular/Chest: Present: regular rate, rhythm, tachycardia - Heart rate 105 Abdomen: Present: soft, nontender Extremity: Absent: lower extremity edema Eye contact: Present: cooperative Assessment/Plan - Problems/Diagnosis (1) DKA (diabetic ketoacidosis) Problem: Acute Qualifiers: Diabetes mellitus type: type 1 Diabetes mellitus complication detail: without coma Qualified Code(s): E10.10 - Type 1 diabetes mellitus with ketoacidosis without coma Narrative: Viral gastroenteritis is possible source. He has been correcting as expected. His gap was closed earlier today, and restarted his home Lantus, which he takes 15 units twice daily. We will stop the drip 2 hours after the Lantus was given. We will continue every 4 hour BMPs, and if he stays out of DKA, will transfer to the [facility] floor. He also takes 8 units of Humalog with meals, plus sliding scale insulin. Will restart mealtime insulin, and if needed, will add sliding scale to it. His blood sugar has been low this morning. Have been adjusting the rates of his D5 normal saline. His urine output has been less than expected, which could be secondary to severe dehydration. He reports feeling back to his normal self. Potential discharge tomorrow. (2) Insomnia due to mental disorder Problem: Chronic (3) Generalized anxiety disorder Problem: Chronic (4) Bipolar affective disorder, current episode depressed Problem: Chronic Qualifiers: Narrative: Continue home medicines. (5) Type I diabetes mellitus, uncontrolled Problem: Acute Qualifiers: Glycemic state: with hyperglycemia Qualified Code(s): E10.65 - Type 1 diabetes mellitus with hyperglycemia Narrative: He reports not eating much at baseline, and this cannot be adjusted. High likelihood of continued difficulty managing his diabetes.
[2018-11-25 11:54] LABS: BUN/Creatinine Ratio 20.3 (9.0-21.6); Calcium * 7.8 mg/dL (7.9-10.9); Carbon Dioxide 21.6 mmol/L (24-32.6); Estimated Creat Clear 95.5; Potassium 3.6 mmol/L (3.4-4.6)
[2018-11-25] MEDS ORDERED: INSULIN ASPART 100 UNITS/ML VIAL SC SCH (12:30)
[2018-11-25] MEDS: INSULIN GLARGINE,HUM.REC.ANLOG 100 UNITS/ML VIAL SC SCH ×2 (12:33→20:29)
[2018-11-25] MEDS: INSULIN LISPRO 100 UNITS/ML VIAL SC SCH ×2 (12:34→17:33)
[2018-11-25 15:39] LABS: Anion Gap 12.2 mmol/L (6.8-13.8); BUN/Creatinine Ratio 18.9 (9.0-21.6); Calcium * 7.9 mg/dL (7.9-10.9); Carbon Dioxide 21.1 mmol/L (24-32.6); Estimated Creat Clear 106.3; Potassium 3.3 mmol/L (3.4-4.6)
[2018-11-25] MEDS: POTASSIUM CHLORIDE 10 MEQ TABLET.SA PO SCH (17:32)
[2018-11-25 19:43] LABS: Anion Gap 12.8 mmol/L (6.8-13.8); BUN/Creatinine Ratio 15.9 (9.0-21.6); Calcium * 7.8 mg/dL (7.9-10.9); Carbon Dioxide 22.5 mmol/L (24-32.6); Estimated Creat Clear 105.3; Potassium 3.3 mmol/L (3.4-4.6)
[2018-11-25] MEDS: QUEtiapine FUMARATE 100 MG TABLET PO SCH (20:20)
[2018-11-25 23:30] LABS: Anion Gap 8.5 mmol/L (6.8-13.8); BUN/Creatinine Ratio 17.6 (9.0-21.6); Calcium * 7.9 mg/dL (7.9-10.9); Carbon Dioxide 23.9 mmol/L (24-32.6); Estimated Creat Clear 132.5; Potassium 3.4 mmol/L (3.4-4.6)
[2018-11-26] MEDS: NORMAL SALINE 1,000 ML IV PRN (02:04)
[2018-11-26 03:42] LABS: Anion Gap 12.5 mmol/L (6.8-13.8); BUN/Creatinine Ratio 13.4 (9.0-21.6); Calcium * 7.8 mg/dL (7.9-10.9); Carbon Dioxide 22.1 mmol/L (24-32.6); Estimated Creat Clear 137.4; Potassium 3.6 mmol/L (3.4-4.6)
[2018-11-26] MEDS: INSULIN GLARGINE,HUM.REC.ANLOG 100 UNITS/ML VIAL SC SCH ×2 (05:31→09:14)
[2018-11-26] MEDS: INSULIN LISPRO 100 UNITS/ML VIAL SC SCH ×2 (07:49→13:46)
[2018-11-26 08:28] LABS: Anion Gap 9.9 mmol/L (6.8-13.8); BUN/Creatinine Ratio 12.2 (9.0-21.6); Calcium * 8.5 mg/dL (7.9-10.9); Estimated Creat Clear 152.2; Potassium 3.9 mmol/L (3.4-4.6)
[2018-11-26] MEDS: OXcarbazepine 300 MG TABLET PO SCH (09:17)
[2018-11-26] MEDS: POTASSIUM CHLORIDE 10 MEQ TABLET.SA PO SCH (09:17)
--- NOTE | 2018-11-26 09:19 | DS ---
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 He was chilling and felt warm at the same time, but his temperature was not taken. Denies other symptoms of infection, and denies sick contacts. He had not been eating, so he has not been giving himself his insulin. He is found to be in DKA with ketones, pH of 7.14, anion gap of 41.5, CO2 of 8.2. He was given 10 U insulin and started on an insulin drip, with aggressive hydration with NS. He started correcting as expected, but developed hypotension with BPs of 70's/40's. He required two extra NS boluses to maintain blood pressure. He felt better the day after admission, mostly back to his baseline. He was on the drip for approximately 24 hours, and transitioned to him home insulin. He gives himself 15 U lantus bid. His evening dose was held on 11/25, as his glucose was decreased to the 50's. His urine output was less than expected, which may have been secondary to severe dehydration. He denies further needs, and feels comfortable going home on the day of discharge. Procedures Performed: none Results and Findings: Pending Mircobiology Results 11/24/18 13:38 Blood Blood Culture - Preliminary NO GROWTH 24 HOURS 11/24/18 13:20 Blood Blood Culture - Preliminary NO GROWTH 24 HOURS Lab Pending Results 11/24/18 13:20: WBC 22.5 H, RBC 4.63 L, Hgb 15.1, Hct 48.6, MCV 105.0 H, MCH 32.6 H, MCHC 31.1 L, RDW 13.3, Plt Count 348, MPV 11.2, Neutrophils % (Manual) 85 H, Band Neuts % (Manual) 2, Lymphocytes % (Manual) 9 L, Monocytes % (Manual) 4, Neutrophils # (Manual) 19.1 H, Lymphocytes # (Manual) 2.0, Monocytes # (Manual) 0.9, Platelet Estimate Normal, RBC Morphology Normal 11/24/18 13:20: Sodium 135, Plasma Sodium 152 H, Potassium 6.3 H, Chloride 93 L, Carbon Dioxide 6.8 L, Anion Gap 41.5 H, BUN 47 H, Creatinine 3.29 H, Est GFR (Non-Af Amer) 22 L D, BUN/Creatinine Ratio 14.3, Random Glucose 1163 H, Calcium 9.4, Calcium Adj for Albumin 8.7, Total Bilirubin 0.5, AST 22, ALT 31, Alkaline Phosphatase 132, Total Protein 8.2, Albumin 4.5, Amylase 97, Lipase 419 H, Serum Ketones Positive - 80mg/dl H 11/24/18 13:20: VBG pH 7.104 L* 11/24/18 13:20: Troponin I Less than 0.017 11/24/18 14:14: pCO2 Less than 14.9 L*, pO2 125.8 H, HCO3 4.7 L, Total CO2 5.1 L, Base Excess -21.9 L, ABG pH 7.14 L*, ABG O2 Sat (Measured) 97.6 11/24/18 15:37: Sodium 147 H, Plasma Sodium 157 H, Potassium 3.4 D, Chloride 109 H, Carbon Dioxide 8.2 L, Anion Gap 33.2 H, BUN 48 H, Creatinine 2.81 H D, Est GFR (Non-Af Amer) 27 L D, BUN/Creatinine Ratio 17.1, Random Glucose 734 H D, Calcium 8.6 11/24/18 16:12: Urine Color Yellow, Urine Appearance Clear, Urine pH 5.5, Ur Specific Jennings 1.010, Urine Protein 15 H, Urine Glucose (UA) >=1000 H, Urine Ketones Large, Urine Blood 50 H, Urine Nitrate Negative, Urine Bilirubin Negative, Prot Sulfosalicylic Acd 1+, Urine Urobilinogen Normal, Ur Leukocyte Esterase Negative, Urine RBC 0-5, Urine WBC 0-5, Ur Epithelial Cells 0-5, Urine Bacteria None seen, Urine Culture Comments No culture indicated 11/24/18 17:36: Sodium 150 H, Plasma Sodium 156 H, Potassium 3.8, Chloride 114 H, Carbon Dioxide 12.1 L, Anion Gap 27.7 H, BUN 41 H, Creatinine 2.30 H D, Est GFR (Non-Af Amer) 34 L D, BUN/Creatinine Ratio 17.8, Random Glucose 465 H D, Calcium 8.3 11/24/18 19:40: Sodium 148 H, Plasma Sodium 152 H, Potassium 4.4, Chloride 117 H, Carbon Dioxide 13.8 L, Anion Gap 21.6 H, BUN 38 H, Creatinine 2.02 H, Est GFR (Non-Af Amer) 39 L, BUN/Creatinine Ratio 18.8, Random Glucose 327 H, Calcium 8.2 11/24/18 21:35: Sodium 152 H, Plasma Sodium 154 H, Potassium 4.4, Chloride 120 H, Carbon Dioxide 19.9 L, Anion Gap 16.5 H, BUN 36 H, Creatinine 1.80 H, Est GFR (Non-Af Amer) 45 L, BUN/Creatinine Ratio 20.0, Random Glucose 210 H D, Calcium 7.7 L 11/24/18 22:02: Troponin I 0.034 11/24/18 23:35: Sodium 153 H, Plasma Sodium 153 H, Potassium 4.3, Chloride 123 H, Carbon Dioxide 17.8 L, Anion Gap 16.5 H, BUN 34 H, Creatinine 1.61 H, Est GFR (Non-Af Amer) 51 L, BUN/Creatinine Ratio 21.1, Random Glucose 123 H D, Calcium 7.6 L 11/25/18 03:40: Sodium 154 H, Plasma Sodium 154 H, Potassium 4.3, Chloride 123 H, Carbon Dioxide 19.7 L, Anion Gap 15.6 H, BUN 30 H, Creatinine 1.43 H, Est GFR (Non-Af Amer) 59 L, BUN/Creatinine Ratio 21.0, Random Glucose 97, Calcium 7.7 L 11/25/18 07:33: Sodium 153 H, Plasma Sodium 153 H, Potassium 3.8, Chloride 122 H, Carbon Dioxide 20.4 L, Anion Gap 14.4 H, BUN 27 H, Creatinine 1.29, Est GFR (Non-Af Amer) 66, BUN/Creatinine Ratio 20.9, Random Glucose 77, Calcium 7.6 L 11/25/18 07:33: WBC 15.0 H D, RBC 3.48 L, Hgb 11.3 L, Hct 33.2 L, MCV 95.4, MCH 32.5 H, MCHC 34.0, RDW 13.3, Plt Count 221, MPV 9.6, Immature Gran % (Auto) 0.60 H, Immature Gran # (Auto) 0.09 H, Neutrophils % 79.3 H, Lymphocytes % 11.1 L, Monocytes % 8.8, Eosinophils % 0.1, Basophils % 0.1, Nucleated RBC % 0.0, Neutrophils # 11.9 H, Lymphocytes # 1.66, Monocytes # 1.3 H, Eosinophils # 0.0, Absolute Basophils 0.0 11/25/18 11:35: Sodium 148 H, Plasma Sodium 148 H, Potassium 3.6, Chloride 117 H, Carbon Dioxide 21.6 L, Anion Gap 13.0, BUN 24 H, Creatinine 1.18, Est GFR (Non-Af Amer) 73, BUN/Creatinine Ratio 20.3, Random Glucose 123 H D, Calcium 7.8 L 11/25/18 15:22: Sodium 146 H, Plasma Sodium 147 H, Potassium 3.3 L, Chloride 116 H, Carbon Dioxide 21.1 L, Anion Gap 12.2, BUN 20, Creatinine 1.06, Est GFR (Non- Af Amer) 83, BUN/Creatinine Ratio 18.9, Random Glucose 133 H, Calcium 7.9 11/25/18 19:30: Sodium 149 H, Plasma Sodium 149 H, Potassium 3.3 L, Chloride 117 H, Carbon Dioxide 22.5 L, Anion Gap 12.8, BUN 17, Creatinine 1.07, Est GFR (Non- Af Amer) 82, BUN/Creatinine Ratio 15.9, Random Glucose 80 D, Calcium 7.8 L 11/25/18 23:18: Sodium 143 H, Plasma Sodium 143 H, Potassium 3.4, Chloride 114 H, Carbon Dioxide 23.9 L, Anion Gap 8.5, BUN 15, Creatinine 0.85, Est GFR (Non- Af Amer) 107 D, BUN/Creatinine Ratio 17.6, Random Glucose 113 H D, Calcium 7.9 11/26/18 03:29: Sodium 145 H, Plasma Sodium 147 H, Potassium 3.6, Chloride 114 H, Carbon Dioxide 22.1 L, Anion Gap 12.5, BUN 11, Creatinine 0.82, Est GFR (Non- Af Amer) 112, BUN/Creatinine Ratio 13.4, Random Glucose 207 H D, Calcium 7.8 L 11/26/18 07:55: Sodium 144 H, Plasma Sodium 146 H, Potassium 3.9, Chloride 114 H, Carbon Dioxide 24.0, Anion Gap 9.9, BUN 9, Creatinine 0.74, Est GFR (Non-Af Amer) 126, BUN/Creatinine Ratio 12.2, Random Glucose 232 H, Calcium 8.5 Discharge Location: Home Disposition: Home self-care Condition: Fair Discharge Activity: Activity as tolerated Discharge Diet: Consistent carbs Referrals: Mitchell Peres MD [Primary Care Provider] - Two Weeks Complete Home Medications List: Complete Home Medication List: Insulin Glargine,Hum.rec.anlog [Lantus] 15 units SC BID 10/20/16 insulin aspart U-100 100 unit/mL subcutaneous solution 8 unit SUBCUT TID #30 ml 05/15/18 insulin syringes (disposable) 1 mL See Dose Instructions .ROUTE .MEDSUPPLY #500 ea 07/16/18 blood sugar diagnostic strips See Dose Instructions .ROUTE .MEDSUPPLY #100 ea 08/16/18 alprazolam 1 mg tablet 1 mg PO TID PRN #90 tab 09/11/18 oxcarbazepine 600 mg tablet 1,200 mg PO BID #120 tab 09/11/18 insulin glargine (U-100) 100 unit/mL subcutaneous solution 15 unit SUB-Q BID #10 ml 10/22/18 brexpiprazole 2 mg tablet 2 mg PO DAILY #30 tab 11/13/18 hydrocodone 10 mg-acetaminophen 325 mg tablet 1 tab PO Q6H #120 tab 11/19/18 naloxone 4 mg/actuation nasal spray 4 mg EFREN Q2-3M PRN #2 ea 11/19/18 QUEtiapine FUMARATE [Seroquel] 300 mg PO HS 11/24/18 traZODone HCL [Trazodone HCl] 100 mg PO HS 11/24/18
[2018-11-26] MEDS ORDERED: INSULIN LISPRO 100 UNITS/ML VIAL SC ONE (13:41)
[2018-11-26 14:32] VITALS: BP 121/88
== END 2018-11-26 15:10 | disposition home or self-care (01) | DRG 638 ==
LOC: ER 12:39 → SCU 14:23 → MS 11-25 18:46
PROVIDERS: ADMIT Family Medicine; ATTEND Family Medicine
DX: F51.04 Psychophysiologic insomnia; E10.40 Type 1 diabetes mellitus with diabetic neuropathy, unspecified; F33.9 Major depressive disorder, recurrent, unspecified; Z79.4 Long term (current) use of insulin; F17.210 Nicotine dependence, cigarettes, uncomplicated; E10.65 Type 1 diabetes mellitus with hyperglycemia; R33.9 Retention of urine, unspecified; E10.10 Type 1 diabetes mellitus with ketoacidosis without coma; I95.9 Hypotension, unspecified
CPT/HCPCS: 36415; 36600; 71020; 71046; 74019; 74020; 80048; 80053; 81001; 82009; 82150; 82800; 82803; 83690; 84484; 85025; 87040; 93005; 94640; 94664; 96374; 99285